=== PATIENT | female | born 1940 | race Caucasian/White ===

== ENCOUNTER 2017-09-04 11:29 | Inpatient (IN) ==
[2017-09-04] MEDS ORDERED: 0.9 % Sodium Chloride 1,000 ML IVC ONE (11:45)
[2017-09-04] MEDS ORDERED: Pantoprazole 40 MG VIAL IVP ONE (11:45)
[2017-09-04] MEDS ORDERED: *HR* Morphine 2 MG/ML SYRINGE IVP ONE (11:50)
[2017-09-04 12:03] LABS: Basophils % 0.6 %; Eosinophils # 0.1 K/mcL (0.0-0.6); Eosinophils % 2.1 %; Hematocrit 36.6 % (35.3-44.9); Immature Granulocytes % 0.2 % (0-4); Lymphocytes # 0.9 K/mcL (0.6-4.6); Lymphocytes % 17.9 %; Mean Corpuscular HGB Conc 32.8 g/dL (31.6-35.5); Mean Corpuscular Hemoglobin 32.6 pg (28.0-33.3); Mean Corpuscular Volume 99.5 fL (83.0-100.0); Mean Platelet Volume 11.7 fL (9.4-12.4); Monocytes # 0.5 K/mcL (0.0-1.3); Monocytes % 9.8 %; Neutrophils # 3.6 K/mcL (1.6-8.9); Platelet Count 198 K/mcL (140-400); Red Blood Count 3.68 M/mcL (3.82-4.97); Red Cell Distribution Width 13.2 % (11.5-14.5); Segmented Neutrophils % 69.4 %
--- NOTE | 2017-09-04 12:09 | Emergency Department Note ---
Disposition Clinical Impression: Hypokalemia, Acute kidney injury GI bleed Qualifiers: GI bleed type/associated pathology: unspecified gastrointestinal hemorrhage type Qualified Code(s): K92.2 - Gastrointestinal hemorrhage, unspecified Disposition: Admitted As Inpatient Condition: Fair Time of Disposition: 15:08 GI Bleed HPI - General Chief complaint: ED GI Bleed Stated complaint: rectal bleeding Time Seen by Provider: 09/04/17 11:35 Source: patient, family Limitations: physical limitation Nursing Notes Reviewed: Yes Vital Signs Reviewed: Yes - History of Present Illness HPI Narrative: 76-year-old female presents to emergency department after concern for her returned goods receiving clerk Dr. Marquis was concerned that the patient had a GI bleed. Patient states that she has had black stools for the past week. She also states that she is noticing some redness as well. Patient denies any previous history of bleeds. Patient does report a history of having perforation of her bowel. Patient states that she is currently having some abdominal discomfort and feels a sensation of "pain when her guts are gushing". Patient is reporting bright red blood on toilet paper, but not in the toilet. Patient denies taking any nonsteroidal anti-inflammatory drugs. - Related Data Home Medications Medication Instructions Recorded Confirmed Hydrochlorothiazide [Microzide] 12.5 mg PO DAILY 09/04/17 09/04/17 Metoprolol [Lopressor] 50 mg PO BID 09/04/17 09/04/17 Previous Rx's Medication Instructions Recorded Ciprofloxacin HCl [Cipro] 500 mg PO Q12H #20 tablet 08/28/17 Ondansetron ODT [Zofran ODT] 4 mg SL Q6HR #24 tab.rapdis 08/28/17 metroNIDAZOLE [Flagyl] 250 mg PO TID #21 tablet 08/28/17 Allergies Allergy/AdvReac Type Severity Reaction Status Date / Time sulfamethoxazole Allergy Hives Verified 09/04/17 11:30 [From Bactrim] trimethoprim [From Bactrim] Allergy Hives Verified 09/04/17 11:30 All systems ED: reviewed and negative except as stated. Review of Systems: As Per HPI Constitutional: Denies: fever Cardiovascular: Denies: chest pain Respiratory: Denies: dyspnea Gastrointestinal: Reports: abdominal pain, melena, hematochezia. Denies: nausea , vomiting Genitourinary: Denies: urgency Hematological/Lymphatic: Reports: easy bleeding Past Medical History - Past Medical History Medical history: Reports: hypertension Psychiatric history: Reports: no psych history CIRCUIT COURT MAGISTRATE history: Reports: no CIRCUIT COURT MAGISTRATE history - Social History Smoking Status: Former smoker Smokeless Tobacco Status: No Alcohol use: Reports: none Drug use: Reports: none Physical Exam General: Well Appearing, in no acute distress Head: autraumatic, EOMI, no conjuncitval pallor, no scleral icterus, Mouth: oral mucous membranes moist Neck: neck soft, trachea midline Chest:: Equal chest wall rise Lungs: Normal lungs sounds bilaterally, no wheezes, no respiratory distress Heart: normal heart sounds, normal rate and rhythm, Abdomen: soft, mild tenderness to palpation of the left lower quadrant, no rigidity, no guarding, no rebdound tenderness GI: No hemorrhoids or evidence of any blood rectum. No gross bloody stools or melenic stools or internal hemorrhoids palpated Lower Extremities: no pedal edema, calves non-tender Integumentary: Skin warm, dry, and intact Neuro: Alert Psych: normal affect, normal mood - General Limitations: physical limitation General appearance: alert, in no apparent distress Course Vital Signs Temperature 98.2 F 09/04/17 11:31 Pulse Rate 90 09/04/17 11:31 Respiratory Rate 15 09/04/17 11:31 Blood Pressure 155/85 09/04/17 11:31 O2 Sat by Pulse Oximetry 95 09/04/17 11:31 Temperature 98.2 F 09/04/17 11:31 Pulse Rate 91 09/04/17 15:41 Respiratory Rate 18 09/04/17 15:41 Blood Pressure 176/88 09/04/17 15:41 O2 Sat by Pulse Oximetry 98 09/04/17 15:41 Oxygen Delivery Oxygen Delivery Room Air GI Bleed - MDM Narrative Medical decision making narrative: 76-year-old female presents to the emergency department with concern from her returned goods receiving clerk for GI hemorrhage. Patient's been reporting melenic and bloody stools over the last week. Patient does have a history of bowel perforation. We will obtain a CT scan of the abdomen and pelvis which does not reveal any acute abnormality. Patient is mildly hypokalemic with a potassium of 2.9 here in the emergency department. We will replace this with 40 mg of potassium. Basic metabolic profile reveals elevated creatinine of 2.27. Hemoglobin here is normal, but there is concern that the patient could be hemoconcentrated which is evident in her acute kidney injury. Fecal Hemoccult was negative on this patient after obtaining a decent stool sample. There was also no gross melanotic stools or hemorrhoid on GI exam. A urinalysis has been ordered, but has not been obtained. I spoke with the hospitalist regarding admission of this patient as her history of present illness is very concerning to me and the fact that her returned goods receiving clerk sent her here is concerning as well. Even though I cannot find evidence of a GI bleed at this time, I do recommend further evaluation within the hospital setting. I spoke with the patient and family regarding admission and they agreed with the plan. I spoke with Dr. Topete, the hospitalist and he agrees to admit her as well. Patient was hemodynamically stable at time of admission to the hospital and not in any acute distress. Chest X-Ray 09/04/17 11:45 IMPRESSION: Mild elevation of the left hemidiaphragm. Patchy lingular airspace opacity may reflect atelectasis. D/ / 09/04/2017 12:28:13 Rosa Franklin MD / [facility] Interpreting Provider: Rosa Franklin MD Abdomen/Pelvis CT 09/04/17 13:41 IMPRESSION: No acute abnormality. D/ / Magno Holbrook MD / Magno Holbrook MD Interpreting Provider: Magno Holbrook MD Vital Signs Temperature 98.2 F 09/04/17 11:31 Pulse Rate 90 09/04/17 11:31 Respiratory Rate 15 09/04/17 11:31 Blood Pressure 155/85 09/04/17 11:31 O2 Sat by Pulse Oximetry 95 09/04/17 11:31 Temperature 98.2 F 09/04/17 11:31 Pulse Rate 91 09/04/17 15:41 Respiratory Rate 18 09/04/17 15:41 Blood Pressure 176/88 09/04/17 15:41 O2 Sat by Pulse Oximetry 98 09/04/17 15:41 Oxygen Delivery Oxygen Delivery Room Air - Lab Data Lab results reviewed: Yes I reviewed the patient's lab results. Result diagrams: 09/04/17 11:56 09/04/17 11:56 Lab Results 09/04/17 09/04/17 09/04/17 Range/Units 11:56 11:56 11:56 WBC 5.2 (4.3-11.1) K/mcL RBC 3.68 L (3.82-4.97) M/mcL Hgb 12.0 (11.5-15.4) g/dL Hct 36.6 (35.3-44.9) % MCV 99.5 (83.0-100.0) fL MCH 32.6 (28.0-33.3) pg MCHC 32.8 (31.6-35.5) g/dL RDW 13.2 (11.5-14.5) % Plt Count 198 (140-400) K/mcL MPV 11.7 (9.4-12.4) fL Immature Gran % 0.2 (0-4) % Seg Neutrophils % 69.4 % Lymphocytes % 17.9 % Monocytes % 9.8 % Eosinophils % 2.1 % Basophils % 0.6 % Neutrophils # 3.6 (1.6-8.9) K/mcL Lymphocytes # 0.9 (0.6-4.6) K/mcL Monocytes # 0.5 (0.0-1.3) K/mcL Eosinophils # 0.1 (0.0-0.6) K/mcL Basophils # 0.0 (0.0-0.2) K/mcL PT 12.5 H (9.4-12.1) Seconds INR 1.2 APTT 29.1 (26.0-36.0) Seconds Sodium 142 (136-145) mEq/L Potassium 2.9 L (3.5-4.5) mEq/L Chloride 105 (98-109) mEq/L Carbon Dioxide 28 (19-29) mEq/L BUN 19 (7-20) mg/dL Creatinine 2.27 H (0.57-1.11) mg/dL Est GFR ( Amer) 26 L (> 60) Est GFR (Non-Af Amer) 21 L (> 60) BUN/Creatinine Ratio 8 (6-26) Glucose 115 H (70-99) mg/dL Calculated Osmolality 297 (280-300) Lactic Acid (0.5-2.2) mmol/L Calcium 9.0 (8.6-10.8) mg/dL Magnesium 1.6 (1.6-2.6) mg/dL Total Bilirubin 0.5 (0.2-1.2) mg/dL AST 21 (5-34) Units/L ALT 22 (0-55) Units/L Alkaline Phosphatase 96 (38-126) Units/L Troponin I (0-0.03) ng/mL Serum Total Protein 8.1 (6.0-8.3) g/dL Albumin 3.5 (3.5-5.0) g/dL Globulin 4.6 H (2.4-3.5) g/dL Albumin/Globulin Ratio 0.8 L (1.1-2.2) Lipase 23 (8-78) Units/L Stool Occult Blood (Negative) Blood Type Antibody Screen Antibody Identification 09/04/17 09/04/17 09/04/17 Range/Units 11:56 11:56 11:56 WBC (4.3-11.1) K/mcL RBC (3.82-4.97) M/mcL Hgb (11.5-15.4) g/dL Hct (35.3-44.9) % MCV (83.0-100.0) fL MCH (28.0-33.3) pg MCHC (31.6-35.5) g/dL RDW (11.5-14.5) % Plt Count (140-400) K/mcL MPV (9.4-12.4) fL Immature Gran % (0-4) % Seg Neutrophils % % Lymphocytes % % Monocytes % % Eosinophils % % Basophils % % Neutrophils # (1.6-8.9) K/mcL Lymphocytes # (0.6-4.6) K/mcL Monocytes # (0.0-1.3) K/mcL Eosinophils # (0.0-0.6) K/mcL Basophils # (0.0-0.2) K/mcL PT (9.4-12.1) Seconds INR APTT (26.0-36.0) Seconds Sodium (136-145) mEq/L Potassium (3.5-4.5) mEq/L Chloride (98-109) mEq/L Carbon Dioxide (19-29) mEq/L BUN (7-20) mg/dL Creatinine (0.57-1.11) mg/dL Est GFR ( Amer) (> 60) Est GFR (Non-Af Amer) (> 60) BUN/Creatinine Ratio (6-26) Glucose (70-99) mg/dL Calculated Osmolality (280-300) Lactic Acid 1.3 (0.5-2.2) mmol/L Calcium (8.6-10.8) mg/dL Magnesium (1.6-2.6) mg/dL Total Bilirubin (0.2-1.2) mg/dL AST (5-34) Units/L ALT (0-55) Units/L Alkaline Phosphatase (38-126) Units/L Troponin I 0.01 (0-0.03) ng/mL Serum Total Protein (6.0-8.3) g/dL Albumin (3.5-5.0) g/dL Globulin (2.4-3.5) g/dL Albumin/Globulin Ratio (1.1-2.2) Lipase (8-78) Units/L Stool Occult Blood (Negative) Blood Type O NEGATIVE Antibody Screen POSITIVE Antibody Identification Anti-D 09/04/17 Range/Units 12:07 WBC (4.3-11.1) K/mcL RBC (3.82-4.97) M/mcL Hgb (11.5-15.4) g/dL Hct (35.3-44.9) % MCV (83.0-100.0) fL MCH (28.0-33.3) pg MCHC (31.6-35.5) g/dL RDW (11.5-14.5) % Plt Count (140-400) K/mcL MPV (9.4-12.4) fL Immature Gran % (0-4) % Seg Neutrophils % % Lymphocytes % % Monocytes % % Eosinophils % % Basophils % % Neutrophils # (1.6-8.9) K/mcL Lymphocytes # (0.6-4.6) K/mcL Monocytes # (0.0-1.3) K/mcL Eosinophils # (0.0-0.6) K/mcL Basophils # (0.0-0.2) K/mcL PT (9.4-12.1) Seconds INR APTT (26.0-36.0) Seconds Sodium (136-145) mEq/L Potassium (3.5-4.5) mEq/L Chloride (98-109) mEq/L Carbon Dioxide (19-29) mEq/L BUN (7-20) mg/dL Creatinine (0.57-1.11) mg/dL Est GFR ( Amer) (> 60) Est GFR (Non-Af Amer) (> 60) BUN/Creatinine Ratio (6-26) Glucose (70-99) mg/dL Calculated Osmolality (280-300) Lactic Acid (0.5-2.2) mmol/L Calcium (8.6-10.8) mg/dL Magnesium (1.6-2.6) mg/dL Total Bilirubin (0.2-1.2) mg/dL AST (5-34) Units/L ALT (0-55) Units/L Alkaline Phosphatase (38-126) Units/L Troponin I (0-0.03) ng/mL Serum Total Protein (6.0-8.3) g/dL Albumin (3.5-5.0) g/dL Globulin (2.4-3.5) g/dL Albumin/Globulin Ratio (1.1-2.2) Lipase (8-78) Units/L Stool Occult Blood Negative (Negative) Blood Type Antibody Screen Antibody Identification - EKG Data EKG attestation: Yes I reviewed and interpreted this EKG. EKG results narrative: 11:54 Ventricular rate 82 bpm, normal IL interval, QRS duration 77 ms, QT 381 ms, QTC 420 ms, Normal axis. Sinus rhythm with a ventricular rate of 82 bpm. There are new T-wave inversions in lead 3 and mild 0.[address] depressions in leads V3, V4, V5. This is new from her previous EKG performed on May 21, 2012. Attestation Statement - Attestation Attestation: I, Aneudy Ramirez DO, examined this patient [id number] and my medical decision-making was reviewed with Dr. Matias Keene, Resident Physician. I agree with the documented findings, disposition and treatment plan as described except to the extent set forth below. Please see my progress notes for details. 76-year-old female presents emergency room with complaint of rectal bleeding as well as dark-colored malonic stool. She is sent from her operative physician Dr. Arthur. She has had a previous bowel perforation or intimal tear in the past. Patient denies any abdominal pain, nausea vomiting diarrhea, chest pain shortness of breath headache or vision change. Denies any weakness ataxia and inability to ambulate or take care of her accident of daily living. Vital signs on presentation are stable. Family is with her at the bedside confirms all the information provided from the patient. The lungs are clear his regular abdomen is soft. Rectal examination does not show any gross blood, hemorrhoid, rectal fissure or tear. Hemoccult testing sent. Screening laboratory workup including type and screen ordered. CT the abdomen also ordered at this time as well as chest x-ray and EKG. Disposition will be discussed with the referring physician as well as possibly hospitals for admission. See detailed documentation of physical exam, medical intervention, medical decision-making, consultations and disposition and the resident physician's note
[2017-09-04 12:10] LABS: INR 1.2; Prothrombin Time 12.5 Seconds (9.4-12.1)
[2017-09-04 12:13] LABS: Activated Partial Thrombo Time 29.1 Seconds (26.0-36.0)
[2017-09-04 12:20] LABS: Albumin 3.5 g/dL (3.5-5.0); Albumin/Globulin Ratio 0.8 (1.1-2.2); Bilirubin,Total 0.5 mg/dL (0.2-1.2); Globulin 4.6 g/dL (2.4-3.5); Magnesium 1.6 mg/dL (1.6-2.6); Potassium 2.9 mEq/L (3.5-4.5); Total Protein 8.1 g/dL (6.0-8.3)
[2017-09-04 15:47] LABS: Bilirubin,Urine Negative (Negative); Blood,Urine Small (Negative); Color,Urine Dark Yellow (Yellow); Glucose,Urine (UA) Normal (Normal); Ketones,Urine Negative (Negative); Leukocyte Esterase,Urine Large (Negative); Nitrite,Urine Negative (Negative); Protein,Urine 30 mg/dL (Neg-Trace); Specific Gravity,Urine 1.013 (1.010-1.025); Urobilinogen,Urine Normal (Normal)
[2017-09-04 15:50] LABS: Hyaline Casts,Urine None Seen per lpf (None-Few); Squamous Epithelial Cell,Urine Many per lpf (None-Few); WBC,Urine TNTC per hpf (0-3)
[2017-09-04 15:52] LABS: Clarity,Urine Hazy (Clear)
[2017-09-04 16:03] LABS: Bacteria,Urine Few per hpf (None-Few); Yeast,Urine Moderate per hpf (None Seen)
[2017-09-04] MEDS ORDERED: Ondansetron 4 MG/2 ML VIAL IVP PRN (17:31)
[2017-09-04] MEDS ORDERED: Naloxone 0.4 MG/ML INJ IVP PRN (17:31)
[2017-09-04] MEDS ORDERED: Acetaminophen 325 MG TABLET PO PRN (17:31)
--- NOTE | 2017-09-04 17:52 | Internal Med History&Physical ---
<Carmen Bocanegra - Last Filed: 09/04/17 18:34> Date of Encounter: 09/04/17 Time of Encounter: 17:49 Assessment and Plan (1) GI bleed Current visit: Yes Status: Acute 1 patient has sun onset of malonic stools as well as blood clots and bright red blood on tissue paper this a.m. she did undergo a colonoscopy on 08/28/2017 was diagnosed with diverticular disease that time. She is not anticoagulated no history of GI bleed in past. She did have a intermittent approximate 5 years ago where she had a perforated bowel from colonoscopy, but no issues since that time. Hemoglobin is stable at 12 we will monitor H&H every 6 hours type and screen 2 patient initiated on Protonix 3 we did consult surgery for colonoscopy-I did speak with Dr. Amado who will patient on consult Qualifiers: GI bleed type/associated pathology: unspecified gastrointestinal hemorrhage type Qualified Code(s): K92.2 - Gastrointestinal hemorrhage, unspecified (2) HTN (hypertension) Current visit: Yes Status: Chronic Presently controlled we will continue with metoprolol with parameters Qualifiers: Hypertension type: essential hypertension Qualified Code(s): I10 - Essential (primary) hypertension (3) Diverticular disease Current visit: No Status: Acute 1 patient had been experiencing diarrhea and rectal bleeding she was seen on 08/28/2017 at [facility] and underwent a colonoscopy. She was diagnosed with diverticulosis at that time and was given Cipro and Flagyl and discharged home. Patient complaining of colonic stools this time CT of abdomen was unremarkable. Occult stool was negative. We will continue with Cipro and Flagyl surgery has been consult and for colonoscopy-I did speak with Dr. Amado who will see patient on consult Qualifiers: Diverticulosis site: unspecified location Diverticulosis bleeding: diverticulosis with bleeding Qualified Code(s): K57.91 - Diverticulosis of intestine, part unspecified, without perforation or abscess with bleeding (4) Acute kidney injury Current visit: Yes Status: Acute Patient's creatinine was 2.27, on the third this month it was 1.71. Patient says that she has had poor oral intake. We will give IV fluids and monitor creatinine 2 we will avoid nephrotoxins 3 monitor electrolytes replace as needed (5) DVT prophylaxis Current visit: Yes Status: Acute SCDs Internal Medicine - H&P: HPI Chief complaint: Malonic stools Admitted From: Emergency Dept Plans for Post Hospital Care: Home History of present illness: Ms. Mancia is a 76 year old female past medical history of hypertension hyperlipidemia. The patient underwent a colonoscopy on 08/28/[address] Guzman at [facility]. She had been experiencing diarrhea and rectal bleeding. She was diagnosed with diverticulosis and was discharged home on Cipro and Flagyl. Today she did experience episodes of dark tarry stool mixed with blood clots and bright red blood on toilet paper. She denies any abdominal pain fevers chills nausea or vomiting. She states that she has not been eating solid food and has been eating Jell-O's and soups. She had a follow -up appointment with Dr. Salinas who advised patient to go to the emergency room for evaluation. [facility] records CT of abdomen with no acute abnormality. Occult stool was negative hemoglobin at 12 she does have HUMZA with creatinine at 2.27. She has been admitted for further workup and evaluation. Presently the patient denies any chest pain or abdominal pain she does not appear to be actively bleeding at this time she is hemogram with a stable. I did review this case with Dr. Topete who agrees to plan Past Med Surg Social Fam HX - Past Medical History Medical history: hypertension Psychiatric history: no psych history - Past Surgical History Surgical History: hysterectomy - Social History Smoking Status: Former smoker Smokeless Tobacco Status: No Alcohol use: none Drug use: none - Family History Mother Age at : 60 Cause of : DM Hx Family Cardiac Disorders: Yes Hx Family Respiratory Disorders: No Hx Family Cancer: No Hx Family GI Disorders: No Hx Family Genitourinary Disorders: No Hx Family Endocrine Disorder: No Hx Family Musculoskeletal Disorders: No Hx Family Neuromuscular Disorders: Yes Hx Family Neurologic Disorders: No Hx Family HEENT Disorders: No Hx Family Autoimmune Disorders: No Hx Family Reproductive Disorders: No Hx Family Psychosocial Disorders: No Hx Family Medical Disorders: No Internal Medicine - H&P: Meds Ciprofloxacin HCl [Cipro] 500 mg PO Q12H #20 tablet 08/28/17 [Rx] Ondansetron ODT [Zofran ODT] 4 mg SL Q6HR #24 tab.rapdis 08/28/17 [Rx] metroNIDAZOLE [Flagyl] 250 mg PO TID #21 tablet 08/28/17 [Rx] Hydrochlorothiazide [Microzide] 12.5 mg PO DAILY 09/04/17 [History] Metoprolol [Lopressor] 50 mg PO BID 09/04/17 [History] 3 Allergy/AdvReac Type Severity Reaction Status Date / Time sulfamethoxazole Allergy Hives Verified 09/04/17 11:30 [From Bactrim] trimethoprim [From Bactrim] Allergy Hives Verified 09/04/17 11:30 All Systems PM: A 10-system review of systems was performed and is negative for pertinent findings except as documented above in the HPI. - Constitutional Constitutional: no chills, no fever(s), no night sweats - EENT Eyes: no change in vision, no discharge, no pain, no photophobia Nose, mouth and throat: no dysphagia, no nasal discharge, no neck pain, no sore throat - Cardiovascular Cardiovascular ROS IM: no chest pain, no diaphoresis, no dyspnea, no lightheadedness, no palpitations, no syncope - Respiratory Respiratory: no cough, no dyspnea, no wheezing, no excessive phlegm production - Gastrointestinal Gastrointestinal: diarrhea, melena, nausea - Genitourinary Genitourinary: no change in urinary stream, no dysuria, no flank pain, no hematuria - Musculoskeletal Musculoskeletal ROS IM: no numbness, no tingling - Integumentary Integumentary IM: no rash, no unusual bruising - Neurological Neurological ROS: no confusion, no convulsions, no focal weakness, no numbness, no tingling, no tremor(s) - Hematologic/Lymphatic Hematologic/Lymphatic: no easy bruising - Constitutional Vitals: Temp Pulse Resp BP Pulse Ox 97.8 F 86 17 123/63 97 09/04/17 17:42 09/04/17 17:42 09/04/17 17:42 09/04/17 17:42 09/04/17 17:42 General appearance: Present: A&O X 3, answers questions appropriately - Head Head exam: Present: atraumatic, normocephalic - Eye Eye exam: Present: PERRL, conjuntiva pink, sclera anicteric Pupils: Present: PERRL - Neck Neck exam general surgery: Present: supple, trachea midline. Absent: lymphadenopathy - Respiratory Respiratory exam: Present: CTAB. Absent: accessory muscle use, rales, rhonchi, wheezes - Cardiovascular Cardiovascular exam: Present: RRR, +S1, +S2. Absent: diastolic murmur, gallop, rubs, systolic murmur - GI/Abdominal GI/Abdominal exam: Present: normal bowel sounds, soft, no peritoneal signs. Absent: distended, tenderness - Extremities Exam Extremities exam: Present: warm, radial pulses palpable and symmetrical. Absent : calf tenderness, cyanotic, pedal edema - Neurological Exam Neurological exam: Present: CN II-XII intact, oriented X3, no focal deficits. Absent: pronater drift, facial droop, speech deficit - Skin Skin exam: Present: dry, intact Internal Med - H&P Results - Labs CBC & Chem 7: 09/04/17 11:56 09/04/17 11:56 Labs: Urine 09/04/17 Range/Units 15:39 Urine Color Dark Yellow (Yellow) Urine Clarity Hazy A (Clear) Urine pH 6.0 (5.0-8.0) pH Units Ur Specific [place] 1.013 (1.010-1.025) Urine Protein 30 H (Neg-Trace) mg/dL Urine Glucose (UA) Normal (Normal) mg/dL - Diagnostic Studies Other Images Additional comments: Chest X-Ray 09/04/17 11:45 IMPRESSION: Mild elevation of the left hemidiaphragm. Patchy lingular airspace opacity may reflect atelectasis. D/ / 09/04/2017 12:28:13 Rosa Franklin MD / [facility] Interpreting Provider: Rosa Franklin MD Abdomen/Pelvis CT 09/04/17 13:41 IMPRESSION: No acute abnormality. D/ / Magno Holbrook MD / Magno Holbrook MD Interpreting Provider: Magno Holbrook MD <Elias Topete P - Last Filed: 09/04/17 18:41> Date of Encounter: 09/04/17 Internal Medicine - H&P: HPI History of present illness: Ms. Mancia is a 76 year old female All Systems PM: A 10-system review of systems was performed and is negative for pertinent findings except as documented above in the HPI. - Constitutional Vitals: Temp Pulse Resp BP Pulse Ox 97.8 F 86 17 123/63 97 09/04/17 17:42 09/04/17 17:42 09/04/17 17:42 09/04/17 17:42 09/04/17 17:42 Internal Med - H&P Results - Labs CBC & Chem 7: 09/04/17 11:56 09/04/17 11:56 - Attending Attestation I examined this patient and my medical decision-making was reviewed with the Resident Physician/TERRITORY SALES MANAGER. I agree with the documented findings, disposition and treatment plan as described except to the extent set forth below.
[2017-09-04] MEDS: Pantoprazole 40 MG VIAL IVP SCH (18:09)
[2017-09-04] MEDS: MetroNIDAZOLE 500 MG/100 ML 500 MG/100 ML BAG IVPB SCH (18:09)
[2017-09-04] MEDS: 0.9 % Sodium Chloride 1,000 ML IVC SCH (18:10)
[2017-09-04 18:52] LABS: Hematocrit 32.3 % (35.3-44.9); Hemoglobin 10.4 g/dL (11.5-15.4)
--- NOTE | 2017-09-04 18:57 | Electrocardiograph Report ---
[place] [id number] Test Date: 2017-09-04 Pat Name: Delicia Mancia Department: 102 Room: 2A32 Gender: F Reel Assembler: Mariely : 1940 Requested By: Matias Keene Order Number: [id number] Reading MD: Yanick Stuart MD Measurements Intervals [place] Rate: 82 P: NC: 0 QRS: 19 QRSD: 77 T: 40 QT: 381 QTc: 420 Interpretive Statements SINUS RHYTHM Electronically Signed On 09-04-2017 18:56:10 EST by Yanick Stuart MD
[2017-09-04] MEDS ORDERED: metroNIDAZOLE 500 MG TABLET PO SCH (21:00)
[2017-09-04 23:33] LABS: Hematocrit 28.7 % (35.3-44.9); Hemoglobin 9.3 g/dL (11.5-15.4)
[2017-09-05] MEDS: MetroNIDAZOLE 500 MG/100 ML 500 MG/100 ML BAG IVPB SCH ×3 (02:57→17:19)
[2017-09-05] MEDS: Pantoprazole 40 MG VIAL IVP SCH ×2 (05:09→17:19)
[2017-09-05 07:00] LABS: Calcium 7.5 mg/dL (8.6-10.8); Potassium 3.4 mEq/L (3.5-4.5)
[2017-09-05] MEDS: 0.9 % Sodium Chloride 1,000 ML IVC SCH ×2 (09:33→23:22)
[2017-09-05] MEDS ORDERED: Potassium Chloride 40 MEQ, Lidocaine 1% 2 ML in D5% in Water 500 ML IVPB ONE (10:57)
--- NOTE | 2017-09-05 11:00 | Internal Med Progress Note ---
Date of Encounter: 09/05/17 Time of Encounter: 10:58 - Assessment and plan (1) Sigmoid diverticulitis Current Visit: Yes Status: Acute (2) Hypokalemia Current Visit: Yes Status: Acute (3) GI bleed Current Visit: Yes Status: Acute Qualifiers: GI bleed type/associated pathology: unspecified gastrointestinal hemorrhage type Qualified Code(s): K92.2 - Gastrointestinal hemorrhage, unspecified (4) Acute kidney injury Current Visit: Yes Status: Acute (5) HTN (hypertension) Current Visit: Yes Status: Chronic Qualifiers: Hypertension type: essential hypertension Qualified Code(s): I10 - Essential (primary) hypertension - Subjective Interval history: Admitted for GI bleed. Apparently on August 28 she was diagnosed with sigmoid diverticulitis. Colonoscopy was done in [facility]. She has returned as she continues to have melena and blood in her stool and even this morning she had bright red blood in her stool. She denies any abdominal pain nausea vomiting diarrhea otherwise. She has been restarted on IV Cipro and Flagyl. General surgery was consulted for possible colonoscopy. Check her CBC and CMP daily and also will check a magnesium. Her potassium is supplemented as it was low. Her creatinine is abnormal and IV fluids will be continued. Her abdominal examination is quite benign. - Constitutional Vitals: Temp Pulse Resp BP Pulse Ox 97.6 F 76 16 127/65 97 09/05/17 10:38 09/05/17 10:38 09/05/17 10:38 09/05/17 10:38 09/05/17 10:38 General appearance: Present: A&O X 3, answers questions appropriately - Head Head exam: Present: atraumatic, normocephalic - Eye Eye exam: Present: PERRL, conjuntiva pink, sclera anicteric Pupils: Present: PERRL - Neck Neck exam general surgery: Present: supple, trachea midline. Absent: lymphadenopathy - Respiratory Respiratory exam: Present: CTAB. Absent: accessory muscle use, rales, rhonchi, wheezes - Cardiovascular Cardiovascular exam: Present: RRR, +S1, +S2. Absent: diastolic murmur, gallop, rubs, systolic murmur - GI/Abdominal GI/Abdominal exam: Present: normal bowel sounds, soft, no peritoneal signs. Absent: distended, tenderness - Extremities Exam Extremities exam: Present: warm, radial pulses palpable and symmetrical. Absent : calf tenderness, cyanotic, pedal edema - Neurological Exam Neurological exam: Present: CN II-XII intact, oriented X3, no focal deficits. Absent: pronater drift, facial droop, speech deficit - Skin Skin exam: Present: dry, intact Internal Medicine: Result - Labs CBC & Chem 7: 09/04/17 23:24 09/05/17 06:30 Labs: Short CBC 09/04/17 09/04/17 Range/Units 17:57 23:24 Hgb 10.4 L D 9.3 L (11.5-15.4) g/dL Hct 32.3 L 28.7 L (35.3-44.9) % BMP 09/05/17 06:30 Sodium 144 Potassium 3.4 L Chloride 113 H Carbon Dioxide 22 BUN 16 Creatinine 1.83 H Glucose 128 H Calcium 7.5 L D - ABG Interpretation ABG results: PT/INR, D-dimer PT 12.5 Seconds (9.4-12.1) H 09/04/17 11:56 - VTE Documentation of Mechanical Device: Intermittent pneumatic compression device Consult Discharge Plan - Plan Referrals: Taylor Harding CNP [Primary Care Provider] - Alan Feldman MD [Family Provider] -
--- NOTE | 2017-09-05 13:51 | General Surgery Consult Note ---
Date of Encounter: 09/05/17 Time of Encounter: 13:51 Assessment and Plan (1) Dark stools Current Visit: Yes Status: Acute I explained to the patient and family members that I think it would be reasonable to consider both an EGD and colonoscopy given her above-mentioned symptoms. Discussed with the patient and family and we will start the bowel prep today for possible or tentative EGD and colonoscopy tomorrow. History of Present Illness Consult date: 09/05/17 Reason for consult: other (Dark stools, diarrhea) Requesting physician: Elias Topete History of present illness: The patient is a 76-year-old female with a past medical history significant for anxiety, hypertension, arthritis, chronic back pain who states that she been having persistent black colored stool about one month. She states she is also been having diarrhea for the same amount of time. She states that she has had a bowel movement 4-5 times per day may have been black in color. She is also admitted to some crampy abdominal pain she was seen by her primary doctor who ordered a CT scan of the abdomen and pelvis. The only abnormality demonstrated by CT scan was diverticulosis. Because of the patient's continued dark-colored stool she was admitted to the hospital and I have been asked to evaluate the patient for possible endoscopy. She has never had a colonoscopy or endoscopy procedure. She admits that her son had a history of colon cancer. Of note; the patient does admit to some occasional heartburn symptoms but has never been prescribed any medications for heartburn/reflux. Past Med Surg Social Fam HX - Past Medical History Medical history: hypertension Psychiatric history: no psych history - Past Surgical History Surgical History: hysterectomy - Social History Smoking Status: Former smoker Smokeless Tobacco Status: No Alcohol use: none Drug use: none - Family History Mother Age at : 60 Cause of : DM Hx Family Cardiac Disorders: Yes Hx Family Respiratory Disorders: No Hx Family Cancer: No Hx Family GI Disorders: No Hx Family Genitourinary Disorders: No Hx Family Endocrine Disorder: No Hx Family Musculoskeletal Disorders: No Hx Family Neuromuscular Disorders: Yes Hx Family Neurologic Disorders: No Hx Family HEENT Disorders: No Hx Family Autoimmune Disorders: No Hx Family Reproductive Disorders: No Hx Family Psychosocial Disorders: No Hx Family Medical Disorders: No Medications and Allergies Ciprofloxacin HCl [Cipro] 500 mg PO Q12H #20 tablet 08/28/17 [Rx] Ondansetron ODT [Zofran ODT] 4 mg SL Q6HR #24 tab.rapdis 08/28/17 [Rx] metroNIDAZOLE [Flagyl] 250 mg PO TID #21 tablet 08/28/17 [Rx] Hydrochlorothiazide [Microzide] 12.5 mg PO DAILY 09/04/17 [History] Metoprolol [Lopressor] 50 mg PO BID 09/04/17 [History] 3 Allergy/AdvReac Type Severity Reaction Status Date / Time sulfamethoxazole Allergy Hives Verified 09/04/17 11:30 [From Bactrim] trimethoprim [From Bactrim] Allergy Hives Verified 09/04/17 11:30 Review of Systems All systems PM: reviewed and no additional remarkable complaints except as stated All systems PM: A 10-system review of systems was performed and is negative for pertinent findings except as documented above in the HPI. General Surgery Exam Initial Vital Signs Temp Pulse Resp BP Pulse Ox 98.2 F 90 15 155/85 95 09/04/17 11:31 09/04/17 11:31 09/04/17 11:31 09/04/17 11:31 09/04/17 11:31 - General physical appearance well nourished, no distress - Eyes PERRL, normal ocular movement - Neck no masses, trachea midline, no lymphadectomy - Respiratory normal expansion, normal respiratory effort, clear to auscultation - Cardiovascular Cardiovascular exam: Present: RRR, no murmurs/rubs/gallops - Abdomen Abdomen general surgery: Present: bowel sounds present, soft, non tender - Integumentary Integumentary general surgery: Present: warm and dry - Neurologic Present: CN 2-12 grossly intact - Musculoskeletal Present: other (no clubbing, cyanosis, or edema.) - Psychiatric Psychiatric general surgery: Present: A&Ox3, appropriate, oriented to person, oriented to place, oriented to time Exam Initial Vital Signs Temp Pulse Resp BP Pulse Ox 98.2 F 90 15 155/85 95 09/04/17 11:31 09/04/17 11:31 09/04/17 11:31 09/04/17 11:31 09/04/17 11:31 Results - Labs 09/06/17 03:16 09/06/17 03:16 Abnormal lab results RBC 3.68 M/mcL (3.82-4.97) L 09/04/17 11:56 Hgb 9.3 g/dL (11.5-15.4) L 09/04/17 23:24 Hct 28.7 % (35.3-44.9) L 09/04/17 23:24 PT 12.5 Seconds (9.4-12.1) H 09/04/17 11:56 Potassium 3.4 mEq/L (3.5-4.5) L 09/05/17 06:30 Chloride 113 mEq/L (98-109) H 09/05/17 06:30 Creatinine 1.83 mg/dL (0.57-1.11) H 09/05/17 06:30 Est GFR ( Amer) 33 (> 60) L 09/05/17 06:30 Est GFR (Non-Af Amer) 27 (> 60) L 09/05/17 06:30 Glucose 128 mg/dL (70-99) H 09/05/17 06:30 Calculated Osmolality 301 (280-300) H 09/05/17 06:30 Calcium 7.5 mg/dL (8.6-10.8) L D 09/05/17 06:30 Globulin 4.6 g/dL (2.4-3.5) H 09/04/17 11:56 Albumin/Globulin Ratio 0.8 (1.1-2.2) L 09/04/17 11:56 Urine Clarity Hazy (Clear) A 09/04/17 15:39 Urine Protein 30 mg/dL (Neg-Trace) H 09/04/17 15:39 Urine Blood Small (Negative) H 09/04/17 15:39 Ur Leukocyte Esterase Large (Negative) H 09/04/17 15:39 Urine Microscopic RBC 5-15 per hpf (0-3) H 09/04/17 15:39 Urine Microscopic WBC TNTC per hpf (0-3) H 09/04/17 15:39 Ur Squamous Epith Cells Many per lpf (None-Few) H 09/04/17 15:39 Urine Yeast Moderate per hpf (None Seen) H 09/04/17 15:39 Ur Culture Indicated? YES (NO) A 09/04/17 15:39 Diabetes panel 09/05/17 Range/Units 06:30 Sodium 144 (136-145) mEq/L Potassium 3.4 L (3.5-4.5) mEq/L Chloride 113 H (98-109) mEq/L Carbon Dioxide 22 (19-29) mEq/L BUN 16 (7-20) mg/dL Creatinine 1.83 H (0.57-1.11) mg/dL Glucose 128 H (70-99) mg/dL Calcium 7.5 L D (8.6-10.8) mg/dL Calcium panel 09/05/17 Range/Units 06:30 Calcium 7.5 L D (8.6-10.8) mg/dL Pituitary panel 09/05/17 Range/Units 06:30 Sodium 144 (136-145) mEq/L Potassium 3.4 L (3.5-4.5) mEq/L Chloride 113 H (98-109) mEq/L Carbon Dioxide 22 (19-29) mEq/L BUN 16 (7-20) mg/dL Creatinine 1.83 H (0.57-1.11) mg/dL Glucose 128 H (70-99) mg/dL Calcium 7.5 L D (8.6-10.8) mg/dL Adrenal panel 09/05/17 Range/Units 06:30 Sodium 144 (136-145) mEq/L Potassium 3.4 L (3.5-4.5) mEq/L Chloride 113 H (98-109) mEq/L Carbon Dioxide 22 (19-29) mEq/L BUN 16 (7-20) mg/dL Creatinine 1.83 H (0.57-1.11) mg/dL Glucose 128 H (70-99) mg/dL Calcium 7.5 L D (8.6-10.8) mg/dL All other labs normal. Consult Discharge Plan - Plan Referrals: Alan Feldman MD [Family Provider] - Taylor Harding CNP [Primary Care Provider] -
[2017-09-05] MEDS ORDERED: Polyethylene Glycol 3350 255 GM POWDER PO ONE (14:04)
[2017-09-06] MEDS: MetroNIDAZOLE 500 MG/100 ML 500 MG/100 ML BAG IVPB SCH ×2 (02:17→09:48)
[2017-09-06 04:18] LABS: Basophils % 0.9 %; Eosinophils # 0.2 K/mcL (0.0-0.6); Eosinophils % 4.7 %; Hematocrit 33.3 % (35.3-44.9); Hemoglobin 10.5 g/dL (11.5-15.4); Immature Granulocytes % 0.6 % (0-4); Lymphocytes # 1.1 K/mcL (0.6-4.6); Lymphocytes % 23.5 %; Mean Corpuscular HGB Conc 31.5 g/dL (31.6-35.5); Mean Corpuscular Hemoglobin 32.2 pg (28.0-33.3); Mean Corpuscular Volume 102.1 fL (83.0-100.0); Mean Platelet Volume 12.6 fL (9.4-12.4); Monocytes # 0.4 K/mcL (0.0-1.3); Monocytes % 7.5 %; Neutrophils # 2.9 K/mcL (1.6-8.9); Platelet Count 176 K/mcL (140-400); Red Blood Count 3.26 M/mcL (3.82-4.97); Red Cell Distribution Width 13.3 % (11.5-14.5); Segmented Neutrophils % 62.8 %
[2017-09-06 04:46] LABS: Albumin/Globulin Ratio 0.8 (1.1-2.2); Bilirubin,Total 0.5 mg/dL (0.2-1.2); Calcium 7.9 mg/dL (8.6-10.8); Globulin 3.6 g/dL (2.4-3.5)
[2017-09-06 04:50] LABS: Albumin 2.7 g/dL (3.5-5.0); Total Protein 6.3 g/dL (6.0-8.3)
[2017-09-06 04:51] LABS: Potassium 3.8 mEq/L (3.5-4.5)
[2017-09-06] MEDS: Pantoprazole 40 MG VIAL IVP SCH ×2 (05:47→17:37)
--- NOTE | 2017-09-06 10:05 | General Surgery Progress Note ---
Date of Encounter: 09/06/17 Time of Encounter: 10:04 - Assessment and Plan (1) Dark stools Current Visit: Yes Status: Acute We will proceed with the EGD and colonoscopy today. Discussed with the patient and family members and they agree with the above plan. Subjective Patient reports: no new complaints, other (The states that she has been having liquid dark bowel movements but no solid stool. No abdominal pain and no nausea or vomiting.) Objective Vital Signs - Last 8 Hours Temp Pulse Resp BP Pulse Ox 09/06/17 06:43 98.8 F 72 16 134/71 98 09/06/17 04:40 97.6 F 68 16 147/61 96 Intake and Output 09/05/17 09/06/17 09/06/17 23:59 07:59 15:59 Intake Total 1340 / 1340 300 / 300 Balance 1340 / 1340 300 / 300 Intake: IV Fluids 1100 / 1100 300 / 300 0.9 % Sodium Chloride 1,000 ML 1000 / 1000 @ 100 mls/hr IVC .Q10H JANI Rx#: [id number] Cipro Premix 400 MG/200 ML 400 200 / 200 mg In 200 ml @ 200 mls/hr IVPB Q24H JANI Rx#:[id number] Flagyl Premix 500 MG/100 ML 500 100 / 100 100 / 100 mg In 100 ml @ 100 mls/hr IVPB Q8H JANI Rx#:[id number] Oral 240 / 240 Other: Meal Dinner Stool Size Small Small Stool Consistency liquid liquid Stool Color Brown # Bowel Movements 1 1 # Bowel Movement Diapers 1 Weight 61.4 kg Patient Weight 09/06/17 23:59 Weight 61.4 kg - General physical appearance well nourished, no distress - Abdomen Abdomen: Present: soft, non tender - Labs 09/06/17 03:16 09/06/17 03:16 Diabetes panel 09/06/17 Range/Units 03:16 Sodium 138 (136-145) mEq/L Potassium 3.8 (3.5-4.5) mEq/L Chloride 110 H (98-109) mEq/L Carbon Dioxide 23 (19-29) mEq/L BUN 11 (7-20) mg/dL Creatinine 1.60 H (0.57-1.11) mg/dL Glucose 115 H (70-99) mg/dL Calcium 7.9 L (8.6-10.8) mg/dL AST 14 (5-34) Units/L ALT 10 (0-55) Units/L Alkaline Phosphatase 70 (38-126) Units/L Albumin 2.7 L D (3.5-5.0) g/dL Calcium panel 09/06/17 Range/Units 03:16 Calcium 7.9 L (8.6-10.8) mg/dL Albumin 2.7 L D (3.5-5.0) g/dL Pituitary panel 09/06/17 Range/Units 03:16 Sodium 138 (136-145) mEq/L Potassium 3.8 (3.5-4.5) mEq/L Chloride 110 H (98-109) mEq/L Carbon Dioxide 23 (19-29) mEq/L BUN 11 (7-20) mg/dL Creatinine 1.60 H (0.57-1.11) mg/dL Glucose 115 H (70-99) mg/dL Calcium 7.9 L (8.6-10.8) mg/dL Adrenal panel 09/06/17 Range/Units 03:16 Sodium 138 (136-145) mEq/L Potassium 3.8 (3.5-4.5) mEq/L Chloride 110 H (98-109) mEq/L Carbon Dioxide 23 (19-29) mEq/L BUN 11 (7-20) mg/dL Creatinine 1.60 H (0.57-1.11) mg/dL Glucose 115 H (70-99) mg/dL Calcium 7.9 L (8.6-10.8) mg/dL Total Bilirubin 0.5 (0.2-1.2) mg/dL AST 14 (5-34) Units/L ALT 10 (0-55) Units/L Alkaline Phosphatase 70 (38-126) Units/L Albumin 2.7 L D (3.5-5.0) g/dL - VTE Documentation of Mechanical Device: Intermittent pneumatic compression device Consult Discharge Plan - Plan Referrals: Alan Feldman MD [Family Provider] - Taylor Harding CNP [Primary Care Provider] -
--- NOTE | 2017-09-06 10:51 | Anesthesia Evaluation PreOp ---
Date of Encounter: 09/06/17 Time of Encounter: 11:19 - Past History Planned Operation: EGD/colon (GI bleed) Cardiac History: HTN Pulmonary History: Former smoker POT RELINER History: Denies Any Significant HX Other Medical History: Renal (ckd) Anesthesia History: No Prior Anesthetic Complications Alcohol Use: none Drug use: none Medications and Allergies Ciprofloxacin HCl [Cipro] 500 mg PO Q12H #20 tablet 08/28/17 [Rx] Ondansetron ODT [Zofran ODT] 4 mg SL Q6HR #24 tab.rapdis 08/28/17 [Rx] metroNIDAZOLE [Flagyl] 250 mg PO TID #21 tablet 08/28/17 [Rx] Hydrochlorothiazide [Microzide] 12.5 mg PO DAILY 09/04/17 [History] Metoprolol [Lopressor] 50 mg PO BID 09/04/17 [History] 3 Allergy/AdvReac Type Severity Reaction Status Date / Time sulfamethoxazole Allergy Hives Verified 09/04/17 11:30 [From Bactrim] trimethoprim [From Bactrim] Allergy Hives Verified 09/04/17 11:30 - Meds/Allergy Pre-op Review Medications Reviewed: Yes Allergies Reviewed: Yes Beta Blockers on Current Med List: Yes If Beta Blockers taken, Date/Time (Last Dose taken): 09-06-17 metoprolol 9:48 Anesthesia Results - Labs 09/06/17 03:16 09/06/17 03:16 - Imaging EKG: report reviewed, image reviewed (SR) Anesthesia Exam Last Vital Signs Temp 98.7 F 09/06/17 10:31 Pulse 61 09/06/17 10:31 Resp 17 09/06/17 10:31 BP 135/62 09/06/17 10:31 Pulse Ox 96 09/06/17 10:31 Weight: 61 kg - HEENT Pupil (Motor): Pupils equal, EOMI Teeth: Edentulous Oral Opening: Greater than 3 - POT RELINER LOC: Oriented POT RELINER Motor: Normal RUE, Normal LUE, Normal RLE, Normal LLE, Normal Face - Cardiac Rhythm: Regular - Pulmonary Breath Sounds: bilateral Clear Respiratory Effort: Symmetrical Anesthesia Assess/Plan ASA Score: 2 Modified Ingalls Scale for Level of Consciousness: Cooperative, oriented, and tranquil Anesthetic Plan: MAC Monitoring Plan: Standard Monitors Recovery Plan: PACU
[2017-09-06] MEDS ORDERED: Lidocaine -MPF 2% 2 ML VIAL ONE (10:59)
[2017-09-06] MEDS ORDERED: *HR* Propofol 200 MG/20 ML VIAL IVP ONE (10:59)
[2017-09-06] MEDS ORDERED: Propofol 500 MG/50 ML INFUS..BTL ONE (10:59)
--- NOTE | 2017-09-06 11:53 | Event Note ---
Date of Encounter: 09/06/17 Time of Encounter: 11:51 EGD performed-noted hiatal hernia. Granular mucosa of the antrum-biopsied. No evidence of bleeding. No gastric or duodenal ulcer. Colonoscopy performed-evidence of prior sigmoid/rectal surgery. No active bleeding. Small diverticulum. No masses or polyps. Biopsy obtained of the cecum (random biopsy). Ok to advance diet. Await path results. Will sign off-thank you.
--- NOTE | 2017-09-06 11:53 | Anesthesia Evaluation Post Op ---
Date of Encounter: 09/06/17 Time of Encounter: 11:53 - Vital Signs Vital Signs: BP 132/77 RR 16 O2 100% HR 68 - Lungs Lungs: Clear Ascult./Percussion - Airway Airway: Non-obstructed - Cardiovascular Regular Rate, Baseline Rhythm - Mental Status Mental Status: Alert & Oriented, Answers Appropriately - Pain Pain Scale: 2 - Nausea Vomiting Nausea Vomiting: Not Present - Hydration Hydration: NPO - Discharge PostOp Status: Transfer Patient to floor
[2017-09-06] MEDS ORDERED: Naloxone 0.4 MG/ML INJ IVP PRN (11:58)
[2017-09-06] MEDS ORDERED: Ondansetron 4 MG/2 ML VIAL IVP PRN (11:58)
[2017-09-06] MEDS ORDERED: Acetaminophen 325 MG TABLET PO PRN (11:58)
--- NOTE | 2017-09-06 16:44 | Internal Med Progress Note ---
Date of Encounter: 09/06/17 Time of Encounter: 16:43 - Assessment and plan (1) Sigmoid diverticulitis Current Visit: Yes Status: Acute (2) Hypokalemia Current Visit: Yes Status: Acute (3) GI bleed Current Visit: Yes Status: Acute Qualifiers: GI bleed type/associated pathology: unspecified gastrointestinal hemorrhage type Qualified Code(s): K92.2 - Gastrointestinal hemorrhage, unspecified (4) Acute kidney injury Current Visit: Yes Status: Acute (5) HTN (hypertension) Current Visit: Yes Status: Chronic Qualifiers: Hypertension type: essential hypertension Qualified Code(s): I10 - Essential (primary) hypertension - Subjective Interval history: Admitted for GI bleed. Apparently on August 28 she was diagnosed with sigmoid diverticulitis. Colonoscopy was done in [facility]. She has returned as she continues to have melena and blood in her stool and even this morning she had bright red blood in her stool. She denies any abdominal pain nausea vomiting diarrhea otherwise. She has been restarted on IV Cipro and Flagyl. General surgery was consulted for possible colonoscopy. Check her CBC and CMP daily and also will check a magnesium. Her potassium is supplemented as it was low. Her creatinine is abnormal and IV fluids will be continued. Her abdominal examination is quite benign. Hemoglobin is stable Hemoccult negative EGD and colonoscopy negative for bleed or inflammation. Random biopsy at rectum. Increase diet. Change antibiotic to oral. Possible discharge tomorrow if tolerates full diet.. - Constitutional Vitals: Temp Pulse Resp BP Pulse Ox 97.5 F L 67 17 144/72 96 09/06/17 15:28 09/06/17 15:28 09/06/17 15:28 09/06/17 15:28 09/06/17 15:28 General appearance: Present: A&O X 3, answers questions appropriately - Head Head exam: Present: atraumatic, normocephalic - Eye Eye exam: Present: PERRL, conjuntiva pink, sclera anicteric Pupils: Present: PERRL - Neck Neck exam general surgery: Present: supple, trachea midline. Absent: lymphadenopathy - Respiratory Respiratory exam: Present: CTAB. Absent: accessory muscle use, rales, rhonchi, wheezes - Cardiovascular Cardiovascular exam: Present: RRR, +S1, +S2. Absent: diastolic murmur, gallop, rubs, systolic murmur - GI/Abdominal GI/Abdominal exam: Present: normal bowel sounds, soft, no peritoneal signs. Absent: distended, tenderness - Extremities Exam Extremities exam: Present: warm, radial pulses palpable and symmetrical. Absent : calf tenderness, cyanotic, pedal edema - Neurological Exam Neurological exam: Present: CN II-XII intact, oriented X3, no focal deficits. Absent: pronater drift, facial droop, speech deficit - Skin Skin exam: Present: dry, intact Internal Medicine: Result - Labs CBC & Chem 7: 09/06/17 03:16 09/06/17 03:16 Labs: Short CBC 09/06/17 Range/Units 03:16 WBC 4.6 (4.3-11.1) K/mcL Hgb 10.5 L (11.5-15.4) g/dL Hct 33.3 L (35.3-44.9) % Plt Count 176 (140-400) K/mcL Neutrophils # 2.9 (1.6-8.9) K/mcL BMP 09/06/17 03:16 Sodium 138 Potassium 3.8 Chloride 110 H Carbon Dioxide 23 BUN 11 Creatinine 1.60 H Glucose 115 H Calcium 7.9 L Liver Function 09/06/17 Range/Units 03:16 Total Bilirubin 0.5 (0.2-1.2) mg/dL AST 14 (5-34) Units/L ALT 10 (0-55) Units/L Alkaline Phosphatase 70 (38-126) Units/L Albumin 2.7 L D (3.5-5.0) g/dL - ABG Interpretation ABG results: PT/INR, D-dimer PT 12.5 Seconds (9.4-12.1) H 09/04/17 11:56 - VTE Documentation of Mechanical Device: Intermittent pneumatic compression device Consult Discharge Plan - Plan Referrals: Alan Feldman MD [Family Provider] - Taylor Harding CNP [Primary Care Provider] -
[2017-09-06] MEDS ORDERED: MetroNIDAZOLE 500 MG/100 ML 500 MG/100 ML BAG IVPB SCH (18:00)
[2017-09-06] MEDS: metroNIDAZOLE 500 MG TABLET PO SCH (20:23)
[2017-09-07 03:31] LABS: Basophils % 0.7 %; Eosinophils # 0.2 K/mcL (0.0-0.6); Eosinophils % 4.1 %; Hematocrit 30.7 % (35.3-44.9); Hemoglobin 9.9 g/dL (11.5-15.4); Immature Granulocytes % 0.2 % (0-4); Lymphocytes # 0.9 K/mcL (0.6-4.6); Lymphocytes % 22.2 %; Mean Corpuscular HGB Conc 32.2 g/dL (31.6-35.5); Mean Corpuscular Hemoglobin 32.9 pg (28.0-33.3); Mean Platelet Volume 12.1 fL (9.4-12.4); Monocytes # 0.5 K/mcL (0.0-1.3); Monocytes % 11.1 %; Neutrophils # 2.6 K/mcL (1.6-8.9); Platelet Count 156 K/mcL (140-400); Red Blood Count 3.01 M/mcL (3.82-4.97); Red Cell Distribution Width 13.4 % (11.5-14.5); Segmented Neutrophils % 61.7 %
[2017-09-07 03:41] LABS: Alanine Aminotransferase 9 Units/L (0-55); Albumin 2.2 g/dL (3.5-5.0); Albumin/Globulin Ratio 0.7 (1.1-2.2); Alkaline Phosphatase 61 Units/L (38-126); Aspartate Amino Transferase 9 Units/L (5-34); BUN/Creatinine Ratio 8 (6-26); Blood Urea Nitrogen 14 mg/dL (7-20); Calcium 7.6 mg/dL (8.6-10.8); Carbon Dioxide 20 mEq/L (19-29); Chloride 114 mEq/L (98-109); Globulin 3.3 g/dL (2.4-3.5); Glucose 111 mg/dL (70-99); Magnesium 1.5 mg/dL (1.6-2.6); Osmolality,Calculated 293 (280-300); Potassium 3.7 mEq/L (3.5-4.5); Sodium 141 mEq/L (136-145); Total Protein 5.5 g/dL (6.0-8.3); eGFR For African Americans 34 (> 60); eGFR For Non-African Americans 28 (> 60)
[2017-09-07 03:42] LABS: Bilirubin,Total < 0.2 mg/dL (0.2-1.2)
[2017-09-07] MEDS: Pantoprazole 40 MG VIAL IVP SCH (07:38)
[2017-09-07] MEDS: metroNIDAZOLE 500 MG TABLET PO SCH ×3 (08:32→20:00)
[2017-09-07] MEDS: 0.9 % Sodium Chloride 1,000 ML IVC SCH ×2 (12:52→22:08)
--- NOTE | 2017-09-07 17:18 | Internal Med Progress Note ---
Date of Encounter: 09/07/17 Time of Encounter: 17:17 - Assessment and plan (1) Sigmoid diverticulitis Current Visit: Yes Status: Acute (2) Hypokalemia Current Visit: Yes Status: Acute (3) GI bleed Current Visit: Yes Status: Acute Qualifiers: GI bleed type/associated pathology: unspecified gastrointestinal hemorrhage type Qualified Code(s): K92.2 - Gastrointestinal hemorrhage, unspecified (4) Acute kidney injury Current Visit: Yes Status: Acute (5) HTN (hypertension) Current Visit: Yes Status: Chronic Qualifiers: Hypertension type: essential hypertension Qualified Code(s): I10 - Essential (primary) hypertension - Subjective Interval history: Admitted for GI bleed. Apparently on August 28 she was diagnosed with sigmoid diverticulitis. Colonoscopy was done in [facility]. She has returned as she continues to have melena and blood in her stool and even this morning she had bright red blood in her stool. She denies any abdominal pain nausea vomiting diarrhea otherwise. She has been restarted on IV Cipro and Flagyl. General surgery was consulted for possible colonoscopy. Check her CBC and CMP daily and also will check a magnesium. Her potassium is supplemented as it was low. Her creatinine is abnormal and IV fluids will be continued. Her abdominal examination is quite benign. Hemoglobin is stable Hemoccult negative EGD and colonoscopy negative for bleed or inflammation. Random biopsy at rectum. Results pending Increase diet. Change antibiotic to oral. Possible discharge tomorrow if tolerates full diet.. Creatinine elevated start IV fluid to see if it can come down to the baseline and also magnesium is low for which IV magnesium as given. Patient lost her IV yesterday and therefore our power to light was done today. - Constitutional Vitals: Temp Pulse Resp BP Pulse Ox 97.9 F 75 16 144/77 99 09/07/17 16:19 09/07/17 16:19 09/07/17 16:19 09/07/17 16:19 09/07/17 16:19 General appearance: Present: A&O X 3, answers questions appropriately Internal Medicine: Result - Labs CBC & Chem 7: 09/07/17 03:09 09/07/17 03:09 Labs: Short CBC 09/07/17 Range/Units 03:09 WBC 4.2 L (4.3-11.1) K/mcL Hgb 9.9 L (11.5-15.4) g/dL Hct 30.7 L (35.3-44.9) % Plt Count 156 (140-400) K/mcL Neutrophils # 2.6 (1.6-8.9) K/mcL BMP 09/07/17 03:09 Sodium 141 Potassium 3.7 Chloride 114 H Carbon Dioxide 20 BUN 14 Creatinine 1.76 H Glucose 111 H Calcium 7.6 L Liver Function 09/07/17 Range/Units 03:09 Total Bilirubin < 0.2 L (0.2-1.2) mg/dL AST 9 (5-34) Units/L ALT 9 (0-55) Units/L Alkaline Phosphatase 61 (38-126) Units/L Albumin 2.2 L (3.5-5.0) g/dL - ABG Interpretation ABG results: PT/INR, D-dimer PT 12.5 Seconds (9.4-12.1) H 09/04/17 11:56 - VTE Documentation of Mechanical Device: Intermittent pneumatic compression device Consult Discharge Plan - Plan Referrals: Alan Feldman MD [Family Provider] - Taylor Harding CNP [Primary Care Provider] -
[2017-09-08 04:09] LABS: Basophils % 0.7 %; Eosinophils # 0.2 K/mcL (0.0-0.6); Eosinophils % 4.5 %; Hematocrit 30.1 % (35.3-44.9); Hemoglobin 9.6 g/dL (11.5-15.4); Immature Granulocytes % 0.9 % (0-4); Lymphocytes # 1.2 K/mcL (0.6-4.6); Lymphocytes % 27.3 %; Mean Corpuscular HGB Conc 31.9 g/dL (31.6-35.5); Mean Corpuscular Hemoglobin 32.8 pg (28.0-33.3); Mean Corpuscular Volume 102.7 fL (83.0-100.0); Mean Platelet Volume 12.2 fL (9.4-12.4); Monocytes # 0.4 K/mcL (0.0-1.3); Monocytes % 9.8 %; Neutrophils # 2.5 K/mcL (1.6-8.9); Platelet Count 162 K/mcL (140-400); Red Blood Count 2.93 M/mcL (3.82-4.97); Red Cell Distribution Width 13.6 % (11.5-14.5); Segmented Neutrophils % 56.8 %
[2017-09-08 04:12] LABS: Alanine Aminotransferase 6 Units/L (0-55); Albumin 2.2 g/dL (3.5-5.0); Albumin/Globulin Ratio 0.6 (1.1-2.2); Alkaline Phosphatase 65 Units/L (38-126); Aspartate Amino Transferase 8 Units/L (5-34); BUN/Creatinine Ratio 10 (6-26); Bilirubin,Total < 0.2 mg/dL (0.2-1.2); Blood Urea Nitrogen 16 mg/dL (7-20); Calcium 7.3 mg/dL (8.6-10.8); Carbon Dioxide 21 mEq/L (19-29); Chloride 118 mEq/L (98-109); Globulin 3.4 g/dL (2.4-3.5); Glucose 120 mg/dL (70-99); Magnesium 1.8 mg/dL (1.6-2.6); Osmolality,Calculated 300 (280-300); Potassium 3.7 mEq/L (3.5-4.5); Sodium 144 mEq/L (136-145); Total Protein 5.6 g/dL (6.0-8.3); eGFR For African Americans 36 (> 60); eGFR For Non-African Americans 30 (> 60)
[2017-09-08 07:19] VITALS: BP 155/81
[2017-09-08] MEDS: metroNIDAZOLE 500 MG TABLET PO SCH (09:41)
--- NOTE | 2017-09-08 10:47 | Discharge Summary ---
Date of Encounter: 09/08/17 Time of Encounter: 10:45 - Discharge Diagnosis (1) Sigmoid diverticulitis Priority: Primary Status: Acute (2) Anemia Priority: Primary Status: Acute Qualifiers: Anemia type: due to chronic kidney disease Chronic kidney disease stage: stage 3 (moderate) Qualified Code(s): N18.3 - Chronic kidney disease, stage 3 (moderate); D63.1 - Anemia in chronic kidney disease; D63.1 - Anemia in chronic kidney disease (3) GI bleed Priority: Primary Status: Ruled-out Qualifiers: GI bleed type/associated pathology: unspecified gastrointestinal hemorrhage type Qualified Code(s): K92.2 - Gastrointestinal hemorrhage, unspecified (4) Acute kidney injury Priority: Primary Status: Resolved (5) CKD (chronic kidney disease) stage 3, GFR 30-59 ml/min Priority: Secondary Status: Chronic (6) HTN (hypertension) Priority: Secondary Status: Chronic Qualifiers: Hypertension type: essential hypertension Qualified Code(s): I10 - Essential (primary) hypertension - Discharge Medications Prescriptions: Ciprofloxacin HCl [Cipro] 250 mg PO BID #8 tab metroNIDAZOLE [Flagyl] 500 mg PO TID #12 tablet Omeprazole [PriLOSEC] 20 mg PO DAILY #30 cap Home Medications: Metoprolol [Lopressor] 50 mg PO BID 09/04/17 [History] Ciprofloxacin HCl [Cipro] 250 mg PO BID #8 tab 09/08/17 [Rx] Omeprazole [PriLOSEC] 20 mg PO DAILY #30 cap 09/08/17 [Rx] metroNIDAZOLE [Flagyl] 500 mg PO TID #12 tablet 09/08/17 [Rx] Allergies/Adverse Reactions: 3 Allergy/AdvReac Type Severity Reaction Status Date / Time sulfamethoxazole Allergy Hives Verified 09/04/17 11:30 [From Bactrim] trimethoprim [From Bactrim] Allergy Hives Verified 09/04/17 11:30 Date of admission: 09/04/17 17:31 Primary care physician: Taylor Harding CNP Consults: 09/04/17 17:46 Consult to Surgery [CONS] Routine Consulting Provider: [facility] Reason for Consult: GI bleed- EGD Time Notified: 17:48 Call Completed: Yes - Patient Status Disposition: Home, Self-Care Condition: Good Overall status at discharge: patient is back to baseline - Discharge Instructions Follow Up With: Alan Feldman MD [Family Provider] - Taylor Harding CNP [Primary Care Provider] - 09/15/17 1:15 pm (Please follow up as schedule...) Additional Instructions: Need to f/u with PCP in one week Need to f/u with Nephro in 2 weeks - Diet and Activity Activity: increase activity as tolerated Diet: low salt diet Hospital course: Ms. Mancia is a 76 year old female with past medical history of hypertension, hyperlipidemia and possible CKD-3 pt admitted with Melena and Dark colored stools. Her hemoccult came back as negative for blood. She did have lower abdominal pain with diverticulosis. So suspected possible diverticulitis and continued her abx which were initiated prior to this hospitalization at [facility]. Reviewed her CT of abd did not show any active diverticulitis. She did go for EGD and Colonoscopy no active bleedign noticed. Pt was placed on full liquid diet and advanced as she tolerated. her hb dropped down to 9.3 from 12.0., however now it is stable around 9.6. So her anemia could be due to occult GI bleed and possible CKD-3. Recommend to f/u with PCP and Nephro as an out pt. - Time Spent with Patient Total time spent providing and/or coordinating discharge services: - Constitutional Vitals: Temp Pulse Resp BP Pulse Ox 97.9 F 70 17 155/81 100 09/08/17 07:18 09/08/17 07:18 09/08/17 07:18 09/08/17 07:18 09/08/17 07:18 General appearance: Present: A&O X 3, answers questions appropriately - Head Head exam: Present: atraumatic, normal inspection - Respiratory Respiratory exam: Present: CTAB. Absent: accessory muscle use, rales, rhonchi, wheezes - Cardiovascular Cardiovascular exam: Present: RRR, +S1, +S2. Absent: diastolic murmur, gallop, rubs, systolic murmur - GI/Abdominal GI/Abdominal exam: Present: normal bowel sounds, soft. Absent: rebound, rigid, tenderness - Extremities Exam Extremities exam: Absent: calf tenderness, pedal edema, tenderness - Back Exam Back exam: Absent: CVA tenderness (L), CVA tenderness (R) - Psychiatric Psychiatric exam: Present: normal affect, normal mood - VTE Documentation of Mechanical Device: Intermittent pneumatic compression device
[2017-09-08] MEDS ORDERED: FLUARIX QUAD 2017-18 36MOS UP/PF 0.5 ML SYRINGE IM ONE (12:16)
== END 2017-09-08 12:45 | disposition home or self-care (01) | DRG 392 ==
LOC: EMEROO 11:29 → 2ANU 11:29 → SUATTDRO 17:31
PROVIDERS: ADMIT Internal Medicine; ATTEND Family Medicine
PROC: ENDOCBX (2017-09-06 11:00)
PROC: ENDOEBX (2017-09-06 11:00)

== ENCOUNTER 2017-09-23 12:08 | Inpatient (IN) ==
--- NOTE | 2017-09-23 12:32 | Emergency Department Note ---
Disposition Clinical Impression: Dehydration, Generalized weakness Abdominal pain Qualifiers: Abdominal location: generalized Qualified Code(s): R10.84 - Generalized abdominal pain Diarrhea Qualifiers: Diarrhea type: unspecified type Qualified Code(s): R19.7 - Diarrhea, unspecified UTI (urinary tract infection) Qualifiers: Urinary tract infection type: site unspecified Hematuria presence: without hematuria Qualified Code(s): N39.0 - Urinary tract infection, site not specified Disposition: Admitted As Inpatient Condition: Fair Time of Disposition: 16:20 Nausea/Vomiting/Diarrhea HPI - General Chief complaint: ED Nausea/Vomiting/Diarrhea Stated complaint: sent from PCP for Fluids Time Seen by Provider: 09/23/17 12:29 Source: patient Mode of arrival: ambulatory Limitations: no limitations Nursing Notes Reviewed: Yes Vital Signs Reviewed: Yes - History of Present Illness HPI Narrative: Patient is a 76-year-old female with past medical history of hypertension, recent diagnosis of diverticulitis of the sigmoid colon, recently discharged on 09/08/17 with Cipro and Flagyl. She presents today due to diarrhea. Patient states that she is still on antibiotics for diverticulitis. She currently lives at home with her daughter. Over the past 3 days, she has had significant watery, foul-smelling, mucous diarrhea. She denies any nausea, vomiting, chest pain, shortness of breath. She does admit to subjective fever and chills, generalized abdominal cramping that mainly occurs when she is defecating. Denies seeing any blood in her stool. She also admits to burning with urination but denies any hematuria. She is unable to tell me if this generalized abdominal pain is different or the same as what she experienced with her sigmoid diverticulitis. She states that she cannot keep up with fluid intake due to the profuse amount of diarrhea that she is having. She feels very dehydrated and generally weak from dehydration. - Related Data Home Medications Medication Instructions Recorded Confirmed Ferrous Sulfate [Iron] 325 mg PO DAILY 09/23/17 09/23/17 Hydrochlorothiazide [Microzide] 12.5 mg PO DAILY 09/23/17 09/23/17 LORazepam [Ativan] 0.5 mg PO DAILY PRN 09/23/17 09/23/17 Metoprolol [Lopressor] 50 mg PO BID 09/23/17 09/23/17 Quinapril HCl [Accupril] 20 mg PO DAILY 09/23/17 09/23/17 Tramadol HCl [Ultram] 50 mg PO Q6H PRN 09/23/17 09/23/17 Previous Rx's Medication Instructions Recorded Omeprazole [PriLOSEC] 20 mg PO DAILY #30 cap 09/08/17 Allergies Allergy/AdvReac Type Severity Reaction Status Date / Time sulfamethoxazole Allergy Hives Verified 09/23/17 16:04 [From Bactrim] trimethoprim [From Bactrim] Allergy Hives Verified 09/23/17 16:04 All systems ED: reviewed and negative except as stated. Constitutional: Reports: fever, chills Cardiovascular: Denies: chest pain, palpitations Respiratory: Denies: cough, dyspnea Gastrointestinal: Reports: abdominal pain, diarrhea. Denies: nausea, vomiting, constipation, hematemesis, melena, hematochezia Genitourinary: Reports: dysuria. Denies: urgency, frequency, hematuria Neurological: Denies: headache, weakness, numbness, paresthesias Past Medical History - Past Medical History Attestation: Yes The following information was validated with the patient. Source: patient Medical history: Reports: hypertension Surgical history: Reports: hysterectomy Psychiatric history: Reports: no psych history WASH TUB MACHINE OPERATOR history: Reports: no WASH TUB MACHINE OPERATOR history - Social History Smoking Status: Never smoker Smokeless Tobacco Status: No Alcohol use: Reports: none Drug use: Reports: none Physical Exam - General Limitations: no limitations General appearance: alert, other (lying in bed, appears generally fatigued) - Head Head exam: atraumatic, normocephalic, normal inspection - Eye Eye exam: Present: normal appearance, PERRL, EOMI - ENT ENT exam: mucous membranes dry, other (No posterior oropharynx lesions or erythema) - Neck Neck exam: Present: normal inspection, full ROM, trachea midline - Chest Chest inspection: Present: normal inspection, symmetric chest wall rise - Respiratory Respiratory exam: Present: normal lung sounds bilaterally - Cardiovascular Cardiovascular exam: Present: regular rate, normal rhythm, normal heart sounds - Abdominal Exam Abdominal exam: Present: soft, tenderness (mild generalized tenderness). Absent : distention, guarding, rebound, rigidity - Extremities Exam Extremities exam: Present: normal inspection, full ROM. Absent: tenderness, pedal edema - Neurological Exam Neurological exam: Present: alert, oriented X3 - Psychiatric Psychiatric exam: Present: normal affect, normal mood - Skin Skin exam: Present: warm, dry, intact, normal color. Absent: rash Course Course Narrative: Patient hypertensive on presentation, otherwise the rest of the vitals are WNL. Physical exam shows a generally fatigued patient with dry mucous membranes and generalized mild abdominal tenderness. Recent antibiotic use, currently still taking them, and recent sigmoid diverticulitis. Unable to tell me if this pain is the same or different as previous sigmoid diverticulitis pain. Concern currently for c diff vs diverticulitis. Will give the patient 1L NS, obtain basic cbc, bmp, UA for dysuria, and c diff PCR. Will also obtain CT of abd and pelvis with IV contrast to assess for any worsening or continued diverticulitis. 15:47 CT abd pelvis shows: IMPRESSION: No acute process within the abdomen or pelvis. No acute diverticulitis is identified.Uncomplicated sigmoid anastomosis.Small right pleural effusion.Cholecystectomy. New mild bilateral pelvicaliectasis likely within normal variation. EKG shows NSR with no acute ST changes. Trop negative. WBC 4.1, Hgb shows chronic anemai at baseline. Potassium 2.7, will give oral potassium replacement. UA shows UTI, will give rocephin 2g. Patient given 1L of NS, will repeat bolus 1L. Still appears generally weak, dehydrated, will admit for dehydration, UTI, gen weakness, hypokalemia. Abdomen/Pelvis CT 09/23/17 12:50 IMPRESSION: No acute process within the abdomen or pelvis. No acute diverticulitis is identified. Uncomplicated sigmoid anastomosis. Small right pleural effusion. Cholecystectomy. New mild bilateral pelvicaliectasis likely within normal variation. D/ / 09/23/2017 15:39:42 Saud Souza MD / jennifer Interpreting Provider: Saud Souza MD Vital Signs Temperature 97.4 F L 09/23/17 12:21 Pulse Rate 77 09/23/17 12:21 Respiratory Rate 16 09/23/17 12:21 Blood Pressure 195/78 09/23/17 12:21 O2 Sat by Pulse Oximetry 97 09/23/17 12:21 Temperature 97.4 F L 09/23/17 12:21 Pulse Rate 77 09/23/17 12:21 Respiratory Rate 16 09/23/17 17:37 Blood Pressure 161/66 09/23/17 17:37 O2 Sat by Pulse Oximetry 95 09/23/17 16:17 Oxygen Delivery Oxygen Delivery Room Air Nausea/Vomiting/Diarrhea - [facility] Narrative Medical decision making narrative: 15:47 CT abd pelvis shows: IMPRESSION: No acute process within the abdomen or pelvis. No acute diverticulitis is identified.Uncomplicated sigmoid anastomosis.Small right pleural effusion.Cholecystectomy. New mild bilateral pelvicaliectasis likely within normal variation. EKG shows NSR with no acute ST changes. Trop negative. WBC 4.1, Hgb shows chronic anemai at baseline. Potassium 2.7, will give oral potassium replacement. UA shows UTI, will give rocephin 2g. Patient given 1L of NS, will repeat bolus 1L. Still appears generally weak, dehydrated, will admit for dehydration, UTI, gen weakness, hypokalemia. - Medical Records Medical records reviewed: Yes I reviewed the patient's medical records. - Lab Data Lab results reviewed: Yes I reviewed the patient's lab results. Result diagrams: 09/23/17 12:51 09/23/17 13:36 Lab Results 09/23/17 09/23/17 09/23/17 Range/Units 12:14 12:51 12:51 WBC 4.1 L (4.3-11.1) K/mcL RBC 3.29 L (3.82-4.97) M/mcL Hgb 10.6 L (11.5-15.4) g/dL Hct 33.5 L (35.3-44.9) % MCV 101.8 H (83.0-100.0) fL MCH 32.2 (28.0-33.3) pg MCHC 31.6 (31.6-35.5) g/dL RDW 14.6 H (11.5-14.5) % Plt Count 196 (140-400) K/mcL MPV 12.4 (9.4-12.4) fL Immature Gran % 0.5 (0-4) % Seg Neutrophils % 63.7 % Lymphocytes % 25.8 % Monocytes % 8.5 % Eosinophils % 1.0 % Basophils % 0.5 % Neutrophils # 2.6 (1.6-8.9) K/mcL Lymphocytes # 1.1 (0.6-4.6) K/mcL Monocytes # 0.4 (0.0-1.3) K/mcL Eosinophils # 0.0 (0.0-0.6) K/mcL Basophils # 0.0 (0.0-0.2) K/mcL Sodium (136-145) mEq/L Potassium (3.5-4.5) mEq/L Chloride (98-109) mEq/L Carbon Dioxide (19-29) mEq/L BUN (7-20) mg/dL Creatinine (0.57-1.11) mg/dL Est GFR ( Amer) (> 60) Est GFR (Non-Af Amer) (> 60) BUN/Creatinine Ratio (6-26) Glucose (70-99) mg/dL Calculated Osmolality (280-300) Calcium (8.6-10.8) mg/dL Troponin I (0-0.03) ng/mL Urine Color Yellow (Yellow) Urine Clarity Turbid A (Clear) Urine pH 7.5 (5.0-8.0) pH Units Ur Specific Strong 1.017 (1.010-1.025) Urine Protein 100 H (Neg-Trace) mg/dL Urine Glucose (UA) Normal (Normal) mg/dL Urine Ketones Trace H (Negative) mg/dL Urine Blood Moderate H (Negative) Urine Nitrite Positive A (Negative) Urine Bilirubin Negative (Negative) Urine Urobilinogen Normal (Normal) mg/dL Ur Leukocyte Esterase Large H (Negative) Urine Microscopic RBC 15-30 H (0-3) per hpf Urine Microscopic WBC TNTC H (0-3) per hpf Ur Squamous Epith Cells Many H (None-Few) per lpf Urine Bacteria Many H (None-Few) per hpf Hyaline Casts None Seen (None-Few) per lpf Ur Culture Indicated? YES A (NO) Specimen Rejected Hemolyzed 09/23/17 09/23/17 Range/Units 13:33 13:36 WBC (4.3-11.1) K/mcL RBC (3.82-4.97) M/mcL Hgb (11.5-15.4) g/dL Hct (35.3-44.9) % MCV (83.0-100.0) fL MCH (28.0-33.3) pg MCHC (31.6-35.5) g/dL RDW (11.5-14.5) % Plt Count (140-400) K/mcL MPV (9.4-12.4) fL Immature Gran % (0-4) % Seg Neutrophils % % Lymphocytes % % Monocytes % % Eosinophils % % Basophils % % Neutrophils # (1.6-8.9) K/mcL Lymphocytes # (0.6-4.6) K/mcL Monocytes # (0.0-1.3) K/mcL Eosinophils # (0.0-0.6) K/mcL Basophils # (0.0-0.2) K/mcL Sodium 147 H (136-145) mEq/L Potassium 2.7 L (3.5-4.5) mEq/L Chloride 107 (98-109) mEq/L Carbon Dioxide 30 H (19-29) mEq/L BUN 12 (7-20) mg/dL Creatinine 0.84 (0.57-1.11) mg/dL Est GFR ( Amer) > 60 (> 60) Est GFR (Non-Af Amer) > 60 (> 60) BUN/Creatinine Ratio 14 (6-26) Glucose 87 (70-99) mg/dL Calculated Osmolality 303 H (280-300) Calcium 8.3 L (8.6-10.8) mg/dL Troponin I 0.01 (0-0.03) ng/mL Urine Color (Yellow) Urine Clarity (Clear) Urine pH (5.0-8.0) pH Units Ur Specific Strong (1.010-1.025) Urine Protein (Neg-Trace) mg/dL Urine Glucose (UA) (Normal) mg/dL Urine Ketones (Negative) mg/dL Urine Blood (Negative) Urine Nitrite (Negative) Urine Bilirubin (Negative) Urine Urobilinogen (Normal) mg/dL Ur Leukocyte Esterase (Negative) Urine Microscopic RBC (0-3) per hpf Urine Microscopic WBC (0-3) per hpf Ur Squamous Epith Cells (None-Few) per lpf Urine Bacteria (None-Few) per hpf Hyaline Casts (None-Few) per lpf Ur Culture Indicated? (NO) Specimen Rejected - Radiology Data Radiology results reviewed: Yes I reviewed the patient's radiology results. Abdomen/Pelvis CT 09/23/17 12:50 IMPRESSION: No acute process within the abdomen or pelvis. No acute diverticulitis is identified. Uncomplicated sigmoid anastomosis. Small right pleural effusion. Cholecystectomy. New mild bilateral pelvicaliectasis likely within normal variation. D/ / 09/23/2017 15:39:42 Saud Souza MD / jennifer Interpreting Provider: Saud Souza MD - EKG Data EKG attestation: Yes I reviewed and interpreted this EKG. EKG results narrative: 09/23/2017 at 16:09. Normal sinus rhythm. Rate 64. ND 366. QRS 102. QTC 374. Normal axis. No acute ST elevation or depression. S.B.A.R. - S.Bethany.Derian Situation: Demographics, MOA Background: Presenting Complaint, Relevant PMH, Meds, & Allergies Assessment: Vital Signs, Course and respsone to treatment, Exam Concerns, Patient/Family Expectation, Pertinant Lab Results, Outstanding Labs Recommendation: Barrier(s) to disposition, Recommendation based on pending studies, treatments, or consults S.B.Derian Report Given to: Dr. adrianne Chaves Repor Time: 16:20 Attestation Statement - Attestation Attestation: I, Johnie Perales, examined this patient and my medical decision-making was reviewed with the DUPLICATING MACHINE OPERATOR/PA/Advanced Practice Nurse/Resident Physician. I agree with the documented findings, disposition and treatment plan as described except to the extent set forth below. 76-year-old female presents emergency Department with concerns of persistent diarrhea as well as dysuria. Patient feels increasingly weak over the past few days. Patient states she was recently admitted to the hospital for sigmoid diverticulitis. She finished a course of ciprofloxacin and Flagyl and had felt improved however she started to again have diarrhea within the past week. Patient has tenderness to palpation of the generalized abdomen, worse in the left lower quadrant in the emergency department. CT of the abdomen was ordered to evaluate for returned diverticulitis or perforation. Urinalysis showed significant area tract infection. She was given ceftriaxone in the emergency department. Patient will be admitted to the hospital for further evaluation of her weakness and continuation of her care.
[2017-09-23] MEDS ORDERED: 0.9 % Sodium Chloride 1,000 ML IVC ONE ×2 (12:43→15:46)
[2017-09-23 13:00] LABS: Bilirubin,Urine Negative (Negative); Blood,Urine Moderate (Negative); Clarity,Urine Turbid (Clear); Color,Urine Yellow (Yellow); Glucose,Urine (UA) Normal (Normal); Ketones,Urine Trace mg/dL (Negative); Leukocyte Esterase,Urine Large (Negative); Nitrite,Urine Positive (Negative); PH,Urine 7.5 pH Units (5.0-8.0); Protein,Urine 100 mg/dL (Neg-Trace); Specific Gravity,Urine 1.017 (1.010-1.025); Urobilinogen,Urine Normal (Normal)
[2017-09-23 13:01] LABS: Basophils % 0.5 %; Hematocrit 33.5 % (35.3-44.9); Hemoglobin 10.6 g/dL (11.5-15.4); Immature Granulocytes % 0.5 % (0-4); Lymphocytes # 1.1 K/mcL (0.6-4.6); Lymphocytes % 25.8 %; Mean Corpuscular HGB Conc 31.6 g/dL (31.6-35.5); Mean Corpuscular Hemoglobin 32.2 pg (28.0-33.3); Mean Corpuscular Volume 101.8 fL (83.0-100.0); Mean Platelet Volume 12.4 fL (9.4-12.4); Monocytes # 0.4 K/mcL (0.0-1.3); Monocytes % 8.5 %; Neutrophils # 2.6 K/mcL (1.6-8.9); Platelet Count 196 K/mcL (140-400); Red Blood Count 3.29 M/mcL (3.82-4.97); Red Cell Distribution Width 14.6 % (11.5-14.5); Segmented Neutrophils % 63.7 %
[2017-09-23 13:04] LABS: Bacteria,Urine Many per hpf (None-Few); Hyaline Casts,Urine None Seen per lpf (None-Few); RBC,Urine 15-30 per hpf (0-3); Squamous Epithelial Cell,Urine Many per lpf (None-Few); WBC,Urine TNTC per hpf (0-3)
[2017-09-23 14:11] LABS: BUN/Creatinine Ratio 14 (6-26); Blood Urea Nitrogen 12 mg/dL (7-20); Calcium 8.3 mg/dL (8.6-10.8); Carbon Dioxide 30 mEq/L (19-29); Chloride 107 mEq/L (98-109); Glucose 87 mg/dL (70-99); Osmolality,Calculated 303 (280-300); Potassium 2.7 mEq/L (3.5-4.5); Sodium 147 mEq/L (136-145); eGFR For African Americans > 60 (> 60); eGFR For Non-African Americans > 60 (> 60)
[2017-09-23] MEDS ORDERED: cefTRIAXone 2,000 MG in Water for inj. (sterile) 20 ML IVP ONE (15:33)
[2017-09-23] MEDS ORDERED: Potassium Chloride Elixir 20 MEQ/15 ML UDC PO ONE (15:49)
[2017-09-23] MEDS ORDERED: 0.9 % Sodium Chloride 1,000 ML IVC SCH (20:45)
[2017-09-23] MEDS ORDERED: Naloxone 0.4 MG/ML INJ IVP PRN (20:45)
--- NOTE | 2017-09-23 20:55 | Internal Med History&Physical ---
<Hoang Ramirez - Last Filed: 09/23/17 22:03> Date of Encounter: 09/23/17 Time of Encounter: 20:50 Assessment and Plan (1) Diarrhea Current visit: Yes Status: Acute 3 day history of watery foul-smelling diarrhea with mucus in her stool. He presents today due to weakness and dehydration. She reports she has not had a bowel movement since yesterday afternoon. Was recently placed on ciprofloxacin and Flagyl for treatment of diverticulitis. I am concerned that she may have Clostridium difficile. Send stool for testing for C-diff Hold vancomycin and flagyl as she is not having active bowel movements. awaiting results of PCR; consider ATB therapy based on results Patient received 2 L fluid bolus in emergency department. Continue rehydration with 0.9% normal saline with 40meq of potassium at 100 mL per hour Patient is hypokalemic due to diarrhea; recheck stat potassium and magnesium now. Encourage oral fluid intake Continuous telemetry and continuous O2 monitoring Strict intake and output CBC, CMP, mag and phosphorus in the morning Qualifiers: Diarrhea type: unspecified type Qualified Code(s): R19.7 - Diarrhea, unspecified (2) UTI (urinary tract infection) Current visit: Yes Status: Acute Continues to report a burning sensation with voiding. Urinalysis showed turbid urine with large leukocyte esterase. She was given ceftriaxone 2 g in the emergency department. We will hold off on antibiotic therapy until urine culture results. I feel at this time antibiotics may further exacerbate her diarrhea Qualifiers: Urinary tract infection type: site unspecified Hematuria presence: without hematuria Qualified Code(s): N39.0 - Urinary tract infection, site not specified (3) Generalized weakness Current visit: Yes Status: Acute She has a three-day history of diarrhea, patient is dehydrated and hypokalemia potassium of 2.7. I suspect she may have Clostridium difficile. All of this is contributing to her generalized weakness. See plan above (4) Dehydration Current visit: Yes Status: Acute Three-day history of diarrhea following antibody treatment for diverticulitis. She reports poor oral intake and multiple watery bowel movements over the last 3 days. He received 2 L of IV fluid in the emergency department. Continue to rehydrate. See plan above (5) Sigmoid diverticulitis Current visit: Yes Status: Acute Recent diagnosis of sigmoid diverticulitis on 09/08/17. Continues to endorse left lower quadrant abdominal pain. CT of abdomen and pelvis completed today reveals no acute process. No acute diverticulitis identified. However, her abdomen remains tender to palpation in the left lower quadrant. The patient may also have Clostridium difficile associated with antibiotic use she has been reporting multiple episodes of watery mucus bowel movements that are foul- smelling over the last 3 days. She does not appear to have acute abdomen at this time. see treatment plan above (6) Abdominal pain Current visit: Yes Status: Acute See plan above Qualifiers: Abdominal location: generalized Qualified Code(s): R10.84 - Generalized abdominal pain (7) Hypokalemia Current visit: Yes Status: Acute Potassium of 2.7 per chemistry. She is reporting watery diarrhea for the last 3 days with poor oral intake. She denies feeling any palpitations, EKG normal sinus rhythm. She does admit to some generalized weakness. 40 meq oral potassium given in the emergency department Recheck stat serum potassium and magnesium now Replace potassium based upon results of stat labs CMP and mag in the morning Hold HCTZ (8) HTN (hypertension) Current visit: Yes Status: Chronic History of hypertension, she was hypertensive on arrival to the emergency department with systolic blood pressures in the 190s they have since decreased to the 160s. She remains hypertensive with SBP in the 160s. Restart beta inez and ALF inhibitor, given metoprolol now Qualifiers: Hypertension type: essential hypertension Qualified Code(s): I10 - Essential (primary) hypertension (9) Anemia Current visit: Yes Status: Acute Ongoing anemia since August 2017. H&H appears to be stable at 10.6 today. She denies any hematemesis, hematochezia, melena. She remains hemodynamically stable. Recheck CBC in the morning Qualifiers: Anemia type: due to chronic kidney disease Chronic kidney disease stage: stage 3 (moderate) Qualified Code(s): N18.3 - Chronic kidney disease, stage 3 (moderate); D63.1 - Anemia in chronic kidney disease; D63.1 - Anemia in chronic kidney disease (10) DVT prophylaxis Current visit: Yes Status: Acute Heparin 5000 units subcutaneous daily Internal Medicine - H&P: HPI Chief complaint: Diarrhea, dehydration Admitted From: Home Plans for Post Hospital Care: Home History of present illness: Ms. Mancia is a 76 year old female with a PMH of hypertension and diverticulitis. She reports that she was just here on 09/08/17 and diagnosed with diverticulitis. She was sent home on Cipro and Flagyl. She presents to [facility] today with dehydration and diarrhea which began approximately 3 days ago. She reports watery, foul-smelling diarrhea with some mucus. She states her last bowel movement was yesterday morning. She reports that she feels generally weak and dehydrated. She denies any nausea, vomiting, fevers, shortness of breath. She admits to chills, fatigue, dysuria, and left lower quadrant abdominal pain without radiation. Workup in the ED included urinalysis and CT of abdomen and pelvis. CT of abdomen and pelvis negative for diverticulitis or any acute abdominal process. Urinalysis indicates she likely has a UTI. Past Med Surg Social Fam HX - Past Medical History Medical history: hypertension Psychiatric history: depression - Past Surgical History Surgical History: cholecystectomy, hysterectomy - Social History Smoking Status: Never smoker Smokeless Tobacco Status: No Alcohol use: none Drug use: none - Family History Mother Hx Family Cardiac Disorders: Yes Hx Family Respiratory Disorders: No Hx Family Cancer: No Hx Family GI Disorders: No Hx Family Endocrine Disorder: No Hx Family Neuromuscular Disorders: Yes Hx Family Neurologic Disorders: No Hx Family HEENT Disorders: No Hx Family Autoimmune Disorders: No Internal Medicine - H&P: Meds Omeprazole [PriLOSEC] 20 mg PO DAILY #30 cap 09/08/17 [Rx] Ferrous Sulfate [Iron] 325 mg PO DAILY 09/23/17 [History] Hydrochlorothiazide [Microzide] 12.5 mg PO DAILY 09/23/17 [History] LORazepam [Ativan] 0.5 mg PO DAILY PRN 09/23/17 [History] Metoprolol [Lopressor] 50 mg PO BID 09/23/17 [History] Quinapril HCl [Accupril] 20 mg PO DAILY 09/23/17 [History] Tramadol HCl [Ultram] 50 mg PO Q6H PRN 09/23/17 [History] 3 Allergy/AdvReac Type Severity Reaction Status Date / Time sulfamethoxazole Allergy Hives Verified 09/23/17 16:04 [From Bactrim] trimethoprim [From Bactrim] Allergy Hives Verified 09/23/17 16:04 All Systems PM: A 10-system review of systems was performed and is negative for pertinent findings except as documented above in the HPI. - Constitutional Constitutional: chills, fatigue, weakness (Generalized), no fever(s) - Cardiovascular Cardiovascular ROS IM: no chest pain, no diaphoresis, no dyspnea, no lightheadedness, no palpitations, no syncope - Respiratory Respiratory: no cough, no dyspnea, no wheezing, no excessive phlegm production - Gastrointestinal Gastrointestinal: abdominal pain (Left lower quadrant), diarrhea (As per history of present illness), no hematemesis, no hematochezia, no melena, no nausea, no vomiting - Genitourinary Genitourinary: dysuria, no flank pain, no hematuria, no urinary frequency, no urinary incontinence, no urinary urgency - Musculoskeletal Musculoskeletal ROS IM: no numbness, no tingling - Integumentary Integumentary IM: no rash, no unusual bruising - Neurological Neurological ROS: weakness (Generalized), no focal weakness, no headache(s), no numbness, no tingling, no tremor(s) - Constitutional Vitals: Temp Pulse Resp BP Pulse Ox 97.9 F 72 16 164/73 97 09/23/17 19:00 09/23/17 19:00 09/23/17 19:00 09/23/17 19:00 09/23/17 19:00 General appearance: Present: cooperative, A&O X 3, no acute distress, answers questions appropriately - Head Head exam: Present: atraumatic, normocephalic - Eye Eye exam: Present: PERRL, conjuntiva pink, sclera anicteric Pupils: Present: PERRL - Neck Neck exam general surgery: Present: supple, trachea midline. Absent: lymphadenopathy - Respiratory Respiratory exam: Present: CTAB. Absent: accessory muscle use, rales, rhonchi, wheezes - Cardiovascular Cardiovascular exam: Present: RRR, +S1, +S2. Absent: diastolic murmur, gallop, rubs, systolic murmur - GI/Abdominal GI/Abdominal exam: Present: normal bowel sounds, soft, tenderness (LLQ). Absent : distended, firm, guarding, mass, rebound, rigid Additional comments: No pain at McBurney's point negative for Rovsing sign, does not appear to have an acute abdomen - Extremities Exam Extremities exam: Present: warm, radial pulses palpable and symmetrical. Absent : calf tenderness, cyanotic, pedal edema - Neurological Exam Neurological exam: Present: CN II-XII intact, oriented X3, no focal deficits. Absent: pronater drift, facial droop, speech deficit - Skin Skin exam: Present: dry, intact Internal Med - H&P Results - Labs CBC & Chem 7: 09/23/17 12:51 09/23/17 20:36 - EKG Data -: EKG Interpreted by Myself EKG shows normal: sinus rhythm Rate: normal - EKG Data Prior EKG available for review: yes When compared to previous EKG: there is no significant change EKG comments: Normal sinus rhythm rate of 64 09/23/17 20:59 - Diagnostic Studies CT scan - pelvis Status: image reviewed by me Additional comments: no acute process with no abdomen or pelvis, no acute diverticulitis identified <Sourav Calderon - Last Filed: 09/24/17 01:03> Date of Encounter: 09/23/17 Time of Encounter: 23:00 - Gastrointestinal Gastrointestinal: cramping, diarrhea, nausea, no hematemesis, no hematochezia, no melena, no vomiting - Genitourinary Genitourinary: dysuria, no flank pain, no hematuria - Musculoskeletal Musculoskeletal ROS IM: no back pain - Neurological Neurological ROS: weakness - Endocrine Endocrine IM: no polydipsia, no polyuria - Allergic/Immunologic Allergic/Immunologic: no GI upset with certain foods - Constitutional Vitals: Temp Pulse Resp BP Pulse Ox 98.3 F 55 16 157/72 97 09/23/17 23:05 09/23/17 23:05 09/23/17 23:05 09/23/17 23:05 09/23/17 23:05 General appearance: Present: A&O X 3, no acute distress Exam: appears moderately dehydrated - Eye Eye exam: Present: EOMI, PERRL. Absent: scleral icterus - ENT ENT exam: Present: mucous membranes dry - Neck Neck exam general surgery: Present: full ROM, supple. Absent: tenderness - Respiratory Respiratory exam: Present: CTAB. Absent: rales, rhonchi, wheezes - Cardiovascular Cardiovascular exam: Present: RRR, +S1, +S2 - GI/Abdominal GI/Abdominal exam: Present: normal bowel sounds, soft, tenderness (minimal tenderness on my exam). Absent: guarding, rebound - Extremities Exam Extremities exam: Present: full ROM, warm, radial pulses palpable and symmetrical. Absent: calf tenderness - Back Exam Back exam: Absent: CVA tenderness (L), CVA tenderness (R) - Skin Skin exam: Present: dry, warm. Absent: rash Internal Med - H&P Results - Labs CBC & Chem 7: 09/23/17 12:51 09/23/17 20:36 Labs: BMP 09/23/17 20:36 Potassium 3.0 L - Attending Attestation I discussed the patient [place], PMH, ROS, lab data, and exam findings with Hoang Ramirez CNP. I then saw and examined patient independently as well. Patient appears dehydrated and weak. She is not in any significant distress. I reviewed her recent imaging studies. She has had [address] scans this month -- none of which confirm diverticulitis. She may have, however, had diverticultis, based on clinical assessment earlier in the month. I have a lower suspicion for C. Diff. Colitis and suspect that she is having antibiotic- associated diarrhea instead. I, therefore, agree with Hoang's plan to stop antibiotics for now, hydrate patient, and correct electrolytes. She has not had BM in over 24 hours. We will obtain GI panel with her next BM. If findings confirm C. Diff, we will then resume Flagyl and add oral vancomycin. Other than my comments above and noted exam findings, I agree with Hoang's assessment and plan.
[2017-09-23] MEDS: *HR* LORazepam 0.5 MG TABLET PO PRN (21:28)
[2017-09-23 21:30] LABS: Magnesium 1.2 mg/dL (1.6-2.6)
[2017-09-23] MEDS ORDERED: Magnesium Sulfate 2 GM in D5% in Water 100 ML IVPB ONE (22:02)
[2017-09-23] MEDS: 0.9 % Sodium Chloride w KCl 40 MEQ/1,000 ML MLS IVC SCH (23:41)
[2017-09-24] MEDS: *HR* Heparin 5,000 UNIT/ML VIAL SQ SCH ×2 (05:50→17:04)
[2017-09-24 05:53] LABS: Basophils % 0.6 %; Eosinophils % 1.2 %; Hematocrit 30.2 % (35.3-44.9); Hemoglobin 9.4 g/dL (11.5-15.4); Immature Granulocytes % 0.3 % (0-4); Lymphocytes # 1.1 K/mcL (0.6-4.6); Lymphocytes % 33.3 %; Mean Corpuscular HGB Conc 31.1 g/dL (31.6-35.5); Mean Corpuscular Volume 102.7 fL (83.0-100.0); Mean Platelet Volume 12.5 fL (9.4-12.4); Monocytes # 0.3 K/mcL (0.0-1.3); Monocytes % 10.2 %; Neutrophils # 1.8 K/mcL (1.6-8.9); Platelet Count 163 K/mcL (140-400); Red Blood Count 2.94 M/mcL (3.82-4.97); Red Cell Distribution Width 14.6 % (11.5-14.5); Segmented Neutrophils % 54.4 %
[2017-09-24 05:54] LABS: Alanine Aminotransferase 7 Units/L (0-55); Albumin 2.3 g/dL (3.5-5.0); Albumin/Globulin Ratio 0.6 (1.1-2.2); Alkaline Phosphatase 68 Units/L (38-126); Aspartate Amino Transferase 12 Units/L (5-34); BUN/Creatinine Ratio 12 (6-26); Bilirubin,Total 0.2 mg/dL (0.2-1.2); Blood Urea Nitrogen 9 mg/dL (7-20); Calcium 7.2 mg/dL (8.6-10.8); Carbon Dioxide 26 mEq/L (19-29); Chloride 112 mEq/L (98-109); Globulin 3.6 g/dL (2.4-3.5); Glucose 88 mg/dL (70-99); Osmolality,Calculated 298 (280-300); Phosphorous 1.9 mg/dL (2.3-4.7); Potassium 3.1 mEq/L (3.5-4.5); Sodium 145 mEq/L (136-145); Total Protein 5.9 g/dL (6.0-8.3); eGFR For African Americans > 60 (> 60); eGFR For Non-African Americans > 60 (> 60)
[2017-09-24] MEDS ORDERED: Potassium Chloride 40 MEQ, Lidocaine 1% 2 ML in D5% in Water 500 ML IVPB ONE (07:40)
--- NOTE | 2017-09-24 07:41 | Internal Med Progress Note ---
Date of Encounter: 09/24/17 Time of Encounter: 07:38 - Assessment and plan (1) Hypokalemia Current Visit: Yes Status: Acute Assessment and plan: discussed with nurse replacement protocol (2) HTN (hypertension) Current Visit: Yes Status: Chronic Assessment and plan: not well controlled will adjust meds Qualifiers: Hypertension type: essential hypertension Qualified Code(s): I10 - Essential (primary) hypertension (3) Sigmoid diverticulitis Current Visit: Yes Status: Acute Assessment and plan: recent diagnosis ct shows no acute diverticulitis (4) Abdominal pain Current Visit: Yes Status: Acute Assessment and plan: due to dehydration and dirrhea Qualifiers: Abdominal location: generalized Qualified Code(s): R10.84 - Generalized abdominal pain (5) Diarrhea Current Visit: Yes Status: Acute Assessment and plan: concern for c dificil colilits result pending Qualifiers: Diarrhea type: unspecified type Qualified Code(s): R19.7 - Diarrhea, unspecified (6) Dehydration Current Visit: Yes Status: Acute Assessment and plan: due to diarrhea (7) Generalized weakness Current Visit: Yes Status: Acute (8) UTI (urinary tract infection) Current Visit: Yes Status: Acute Assessment and plan: cultures sents not started on antibiotics yet due to concern for c deficil Qualifiers: Urinary tract infection type: site unspecified Hematuria presence: without hematuria Qualified Code(s): N39.0 - Urinary tract infection, site not specified - Subjective Interval history: Patient recently discharged with diagnosis of diverticulitis on flagyl and cipro returns with diarrhea x 3 days c dif result pending.. this morning no bowel movement yet - Constitutional Vitals: Temp Pulse Resp BP Pulse Ox 97.9 F 72 16 185/94 99 09/24/17 06:23 09/24/17 06:23 09/24/17 06:23 09/24/17 06:23 09/24/17 06:23 General appearance: Present: A&O X 3, no acute distress - Eye Eye exam: Present: PERRL, conjuntiva pink, sclera anicteric Pupils: Present: PERRL - Neck Neck exam general surgery: Present: supple, trachea midline. Absent: lymphadenopathy - Respiratory Respiratory exam: Present: CTAB. Absent: accessory muscle use, rales, rhonchi, wheezes - Cardiovascular Cardiovascular exam: Present: RRR, +S1, +S2. Absent: diastolic murmur, gallop, rubs, systolic murmur - GI/Abdominal GI/Abdominal exam: Present: normal bowel sounds, soft, no peritoneal signs. Absent: distended, tenderness - Extremities Exam Extremities exam: Present: warm, radial pulses palpable and symmetrical. Absent : calf tenderness, cyanotic, pedal edema Internal Medicine: Result - Labs CBC & Chem 7: 09/24/17 05:06 09/24/17 05:06 Labs: Short CBC 09/24/17 Range/Units 05:06 WBC 3.3 L (4.3-11.1) K/mcL Hgb 9.4 L (11.5-15.4) g/dL Hct 30.2 L (35.3-44.9) % Plt Count 163 (140-400) K/mcL Neutrophils # 1.8 (1.6-8.9) K/mcL BMP 09/23/17 09/24/17 20:36 05:06 Sodium 145 Potassium 3.0 L 3.1 L Chloride 112 H Carbon Dioxide 26 BUN 9 Creatinine 0.77 Glucose 88 Calcium 7.2 L Liver Function 09/24/17 Range/Units 05:06 Total Bilirubin 0.2 (0.2-1.2) mg/dL AST 12 (5-34) Units/L ALT 7 (0-55) Units/L Alkaline Phosphatase 68 (38-126) Units/L Albumin 2.3 L (3.5-5.0) g/dL Consult Discharge Plan - Plan Referrals: Taylor Harding CNP [Primary Care Provider] - Alan Feldman MD [Family Provider] -
[2017-09-24] MEDS: traMADol 50 MG TABLET PO PRN (08:30)
[2017-09-24] MEDS ORDERED: hydroCHLOROthiazide 25 MG TABLET PO SCH (09:00)
[2017-09-24] MEDS: 0.9 % Sodium Chloride w KCl 40 MEQ/1,000 ML MLS IVC SCH ×2 (11:52→22:05)
[2017-09-24] MEDS: Lactobacillus 1 EACH CAP.SPRINK PO SCH ×2 (12:02→19:44)
[2017-09-25 05:23] LABS: BUN/Creatinine Ratio 10 (6-26); Blood Urea Nitrogen 8 mg/dL (7-20); Calcium 7.7 mg/dL (8.6-10.8); Carbon Dioxide 22 mEq/L (19-29); Chloride 116 mEq/L (98-109); Glucose 105 mg/dL (70-99); Osmolality,Calculated 293 (280-300); Sodium 142 mEq/L (136-145); eGFR For African Americans > 60 (> 60); eGFR For Non-African Americans > 60 (> 60)
[2017-09-25 05:24] LABS: Potassium 4.8 mEq/L (3.5-4.5)
[2017-09-25] MEDS: traMADol 50 MG TABLET PO PRN ×2 (05:55→15:58)
[2017-09-25] MEDS: 0.9 % Sodium Chloride w KCl 40 MEQ/1,000 ML MLS IVC SCH (05:56)
[2017-09-25] MEDS: *HR* Heparin 5,000 UNIT/ML VIAL SQ SCH ×2 (05:58→17:37)
[2017-09-25] MEDS: Lactobacillus 1 EACH CAP.SPRINK PO SCH ×2 (09:29→20:39)
--- NOTE | 2017-09-25 12:06 | Infectious Disease Consult ---
Date of Encounter: 09/25/17 Time of Encounter: 12:02 Assessment and Plan (1) C. difficile diarrhea Status: Acute Assessment and plan: Likely secondary to recent antibiotic use. C. diff PCR positive. Mild, uncomplicated. No SIRS criteria and the patient does not appear toxic. Start Vancomycin 125mg PO QID. Given that the patient also has a UTI and will require antibiotics, she will likely benefit from a prolonged course of PO antibiotic. Continue C. diff contact precautions. Duration of treatment depends on the clinical picture. Continue supportive care. (2) UTI (urinary tract infection) Status: Acute Assessment and plan: Causative organism Citrobacter freundii. Uncomplicated. Start Cefepime 2 grams IV Q12H. Duration of treatment depends on the clinical picture, but will likely transition to PO Fosfomycin when ready for discharge to complete the course of treatment. Monitor renal function and dose-adjust antibiotics. Qualifiers: Urinary tract infection type: site unspecified Hematuria presence: without hematuria Qualified Code(s): N39.0 - Urinary tract infection, site not specified (3) Abdominal pain Status: Acute Assessment and plan: Likely secondary to C. diff. CT of the abdomen and pelvis was negative for acute intra-abdominal abnormality. Continue supportive care. Qualifiers: Abdominal location: generalized Qualified Code(s): R10.84 - Generalized abdominal pain (4) Hypokalemia Status: Acute Assessment and plan: Likely secondary to acute GI loss. Resolved. (5) Anemia Status: Acute Assessment and plan: No acute bleeding on exam. Workup and management per the primary team. Qualifiers: Anemia type: due to chronic kidney disease Chronic kidney disease stage: stage 3 (moderate) Qualified Code(s): N18.3 - Chronic kidney disease, stage 3 (moderate); D63.1 - Anemia in chronic kidney disease; D63.1 - Anemia in chronic kidney disease (6) Dehydration Status: Acute Assessment and plan: Secondary to GI loss. Improved. Management per the primary team. (7) Generalized weakness Status: Acute Assessment and plan: Secondary to dehydration. Improved. (8) CKD (chronic kidney disease) stage 3, GFR 30-59 ml/min Status: Chronic Infectious Disease HPI - Data of Consult Patient: new to practice Consult date: 09/25/17 Requesting Physician: Petey Diaz MD Primary Care Provider: Taylor Harding CNP Family Provider: Alan Feldman - Consult Narrative Reason for consult: UTI, C. diff History of present illness: Ms. Mancia is a 76 year old female past medical history of hypertension and diverticulitis. The patient was admitted to the hospital September 23 for abdominal pain, diarrhea, and urinary tract infection. We are consulted September 25 for antibiotic recommendations regarding urinary tract infection and C. difficile. Briefly, the patient's a 76-year-old female with past medical history as stated above. The patient was discharged from [place] on September 08 after she was hospitalized for diverticulitis. She was discharged home to complete a course of oral Cipro and Flagyl, which the patient states she finished last . She states on Thursday she began to have profuse diarrhea with any by mouth intake and was generally weak and very tired. She also reported some lower back pain with associated dysuria and urinary frequency. On arrival to the ER, the patient was afebrile and hemodynamically stable. Laboratory studies revealed a white blood cell count of 4.1. Renal function was within normal limits. A urinalysis was obtained that was positive for pyuria. Urine was sent for culture. A CT abdomen and pelvis was essentially negative. She was admitted to the hospital for IV fluid resuscitation. Since admission, the patient's white blood cell count is down to 3.3. Stool sample came back positive for C. difficile. Urine culture is growing out Citrobacter freundii. Currently, the patient is on no antibiotics. We've been asked to evaluate and make further recommendations. My exam today, the patient endorses a history as stated above. She denies any fevers or chills or rigors. She denies any headache or neck pain. She denies any chest pain, shortness of breath, or cough. She denied any nausea or vomiting , but states she did not eat much because every time she did she would have a large amount of diarrhea. She states she was stooling anywhere from 10-20 times per day and often spent the entire day and night in the bathroom. She states her stools were mucousy and watery and she had some associated left lower quadrant abdominal pain with her bowel movements. She denies any blood in the stool. She also reports some bilateral flank pain with dysuria and urinary frequency. She denies any pain in her joints or extremities. She denies any oral thrush or new skin lesions. The patient has been staying in [place] with her daughter. She does not work outside the home. She is not been exposed to any animals. She denies any recent travel. She does not smoke, drink alcohol, or use any illicit drugs. CC: Petey Diaz MD Past Med Surg Social Fam HX - Past Medical History Attestation: Yes The following information was validated with the patient. Source: patient, old records reviewed, nursing notes reviewed Medical history: hypertension, other (Diverticulitis) Psychiatric history: depression - Past Surgical History Surgical History: cholecystectomy, hysterectomy, other (Rectovaginal fistula repair), vascular surgery (LLE) - Social History Smoking Status: Never smoker Smokeless Tobacco Status: No Alcohol use: none Drug use: none Occupational status: unemployed Current living situation: Home, With Family Activity Level: Uses cane/walker Recent Out of Country Travel Within the Last 8 Weeks: No Exposure or Possible Exposure to Illness During Travel: No - Family History Mother Hx Family Cardiac Disorders: Yes Hx Family Respiratory Disorders: No Hx Family Cancer: No Hx Family GI Disorders: No Hx Family Endocrine Disorder: No Hx Family Neuromuscular Disorders: Yes Hx Family Neurologic Disorders: No Hx Family HEENT Disorders: No Hx Family Autoimmune Disorders: No Infectious Disease-CN:Meds Omeprazole [PriLOSEC] 20 mg PO DAILY #30 cap 09/08/17 [Rx] Ferrous Sulfate [Iron] 325 mg PO DAILY 09/23/17 [History] Hydrochlorothiazide [Microzide] 12.5 mg PO DAILY 09/23/17 [History] LORazepam [Ativan] 0.5 mg PO DAILY PRN 09/23/17 [History] Metoprolol [Lopressor] 50 mg PO BID 09/23/17 [History] Quinapril HCl [Accupril] 20 mg PO DAILY 09/23/17 [History] Tramadol HCl [Ultram] 50 mg PO Q6H PRN 09/23/17 [History] 3 Allergy/AdvReac Type Severity Reaction Status Date / Time sulfamethoxazole Allergy Hives Verified 09/23/17 16:04 [From Bactrim] trimethoprim [From Bactrim] Allergy Hives Verified 09/23/17 16:04 Exam - Constitutional Vitals: Temp Pulse Resp BP Pulse Ox 97.4 F L 84 16 164/62 94 09/25/17 10:42 09/25/17 10:42 09/25/17 10:42 09/25/17 10:42 09/25/17 10:42 General appearance: average body habitus, cooperative, no acute distress - Head Head exam: Present: atraumatic, normal inspection, normocephalic - Eye Eye exam: Present: EOMI, normal appearance, PERRL Pupils: Present: normal accommodation - ENT ENT exam: Present: mucous membranes moist - Neck Neck exam: Present: normal inspection - Respiratory Respiratory exam: Present: CTAB. Absent: rales, respiratory distress, rhonchi, wheezes - Cardiovascular Cardiovascular exam: Present: RRR, +S1, +S2 - GI/Abdominal GI/Abdominal exam: Present: normal bowel sounds, soft, tenderness (LLQ). Absent : distended - Extremities Exam Extremities exam: Present: pedal edema (1+ BLE). Absent: joint swelling, tenderness - Back Exam Back exam: Absent: CVA tenderness (L), CVA tenderness (R) - Neurological Exam Neurological exam: Present: alert, oriented X3, no focal deficits - Psychiatric Psychiatric exam: Present: normal affect, normal mood - Skin Skin exam: Present: dry, intact, normal color, warm Infectious Disease CN: Results - Labs CBC & Chem 7: 09/24/17 05:06 09/25/17 04:39 Serology: Serology 09/24/17 Range/Units 11:16 Stl C. diff Tox B Gene Positive (Negative) Consult Discharge Plan - Plan Referrals: Alan Feldman MD [Family Provider] - Taylor Harding CNP [Primary Care Provider] -
[2017-09-25] MEDS: Vancomycin Oral Soln 250 MG/5 ML UDC PO SCH ×3 (12:19→20:39)
--- NOTE | 2017-09-25 14:26 | Internal Med Progress Note ---
Date of Encounter: 09/25/17 Time of Encounter: 14:23 - Assessment and plan (1) C. difficile diarrhea Current Visit: Yes Status: Acute Assessment and plan: Noted that patient has a C. difficile PCR positive. Etiology: Likely recent use of antibiotics. Infectious disease on the board. Infectious disease recommended vancomycin 125 mg by mouth 4 times a day We will follow the recommendations from infectious disease. Patient needs prolonged course of antibiotics and may get benefit from oral antibiotics rather than intravenous antibiotics (2) Hypokalemia Current Visit: Yes Status: Acute Assessment and plan: Patient had a hypokalemia yesterday which is likely secondary to this C. difficile diarrhea. Potassium was replaced. Today patient's potassium is 4.8. We will monitor potassium closely. (3) Anemia Current Visit: Yes Status: Acute Assessment and plan: Stable anemia likely secondary to previous GI loss. Qualifiers: Anemia type: due to chronic kidney disease Chronic kidney disease stage: stage 3 (moderate) Qualified Code(s): N18.3 - Chronic kidney disease, stage 3 (moderate); D63.1 - Anemia in chronic kidney disease; D63.1 - Anemia in chronic kidney disease (4) Abdominal pain Current Visit: Yes Status: Acute Assessment and plan: Patient had abdominal pain likely secondary to C. difficile diarrhea Qualifiers: Abdominal location: generalized Qualified Code(s): R10.84 - Generalized abdominal pain (5) Generalized weakness Current Visit: Yes Status: Acute Assessment and plan: Likely secondary to the ongoing diarrhea (6) UTI (urinary tract infection) Current Visit: Yes Status: Acute Assessment and plan: Uncomplicated UTI secondary to Citrobacter Patient is on cefepime 2 g every 12 hours. Per ID: Patient needs at least 2 weeks of antibiotics. Qualifiers: Urinary tract infection type: site unspecified Hematuria presence: without hematuria Qualified Code(s): N39.0 - Urinary tract infection, site not specified - Subjective Interval history: Patient seen and examined. Chart reviewed Patient is comfortably lying in the bed. Patient claims that she still has ongoing diarrhea. Patient denies chest pain, shortness of breath, nausea, vomiting, abdominal pain - Constitutional Vitals: Temp Pulse Resp BP Pulse Ox 97.4 F L 84 16 164/62 94 09/25/17 10:42 09/25/17 10:42 09/25/17 10:42 09/25/17 10:42 09/25/17 10:42 General appearance: Present: A&O X 3, no acute distress - Head Head exam: Present: atraumatic, normocephalic - Eye Eye exam: Present: PERRL, conjuntiva pink, sclera anicteric Pupils: Present: PERRL - Neck Neck exam general surgery: Present: supple, trachea midline. Absent: lymphadenopathy - Respiratory Respiratory exam: Present: CTAB. Absent: accessory muscle use, rales, rhonchi, wheezes - Cardiovascular Cardiovascular exam: Present: RRR, +S1, +S2. Absent: diastolic murmur, gallop, rubs, systolic murmur - GI/Abdominal GI/Abdominal exam: Present: normal bowel sounds, soft, no peritoneal signs. Absent: distended, tenderness - Extremities Exam Extremities exam: Present: warm, radial pulses palpable and symmetrical. Absent : calf tenderness, cyanotic, pedal edema - Neurological Exam Neurological exam: Present: CN II-XII intact, oriented X3, no focal deficits. Absent: pronater drift, facial droop, speech deficit - Skin Skin exam: Present: dry, intact Internal Medicine: Result - Labs CBC & Chem 7: 09/24/17 05:06 09/25/17 04:39 Labs: BMP 09/25/17 04:39 Sodium 142 Potassium 4.8 H D Chloride 116 H Carbon Dioxide 22 BUN 8 Creatinine 0.81 Glucose 105 H Calcium 7.7 L Consult Discharge Plan - Plan Referrals: Alan Feldman MD [Family Provider] - Taylor Harding CNP [Primary Care Provider] -
[2017-09-25] MEDS ORDERED: Cefepime HCl 2,000 MG in D5% in Water (Mini-Bag+) 100 ML IVPB SCH (16:00)
--- NOTE | 2017-09-25 16:22 | Electrocardiograph Report ---
[place] [id number] Test Date: 2017-09-23 Pat Name: Delicia Mancia Department: 104 Room: [facility] Gender: F Clam Picker: EKP : [id number] Requested By: Vik Baker Order Number: [id number] Reading MD: Johnie Delcid Measurements Intervals [place] Rate: 64 P: -70 CT: 366 QRS: 33 QRSD: 102 T: 50 QT: 365 QTc: 374 Interpretive Statements SUPRAVENTRICULAR RHYTHM ARTIFACT LIMITS INTERPRETATION Electronically Signed On 09-25-2017 16:20:12 EST by Johnie Delcid
[2017-09-25] MEDS: Cefepime HCl 2,000 MG in Water for inj. (sterile) 20 ML IVP SCH (17:29)
[2017-09-25] MEDS: 0.9 % Sodium Chloride 1,000 ML IVC SCH (18:44)
[2017-09-26 00:17] LABS: Acinetobacter baumannii by PCR Not Detected (Not Detect); Candida albicans by PCR Not Detected (Not Detect); Candida glabrata by PCR Not Detected (Not Detect); Candida krusei by PCR Not Detected (Not Detect); Candida parapsilosis by PCR Not Detected (Not Detect); Candida tropicalis by PCR Not Detected (Not Detect); Enterococcus by PCR Not Detected (Not Detect); Escherichia coli by PCR Not Detected (Not Detect); Klebsiella oxytoca by PCR Not Detected (Not Detect); Klebsiella pneumoniae by PCR Not Detected (Not Detect); Pseudomonas aeruginosa by PCR Not Detected (Not Detect); Serratia marcescens by PCR Not Detected (Not Detect); Staphylococcus aureus by PCR Not Detected (Not Detect); Streptococcus agalactiae(B)PCR Not Detected (Not Detect); Streptococcus by PCR Not Detected (Not Detect); Streptococcus pneumoniae PCR Not Detected (Not Detect); Streptococcus pyogenes (A) PCR Not Detected (Not Detect); blaKPC Carbapenem-Resist Gene Not Detected (Not Detect); mecA Methicillin-Resist Gene ***DETECTED*** (Not Detect); vanA/B Vancomycin-Resist Genes Not Detected (Not Detect)
--- NOTE | 2017-09-26 00:29 | Event Note ---
Date of Encounter: 09/26/17 Time of Encounter: 00:28 1 out of 2 sets blood cx positive suspect contaminant ? Repeat 2 sets of blood cx and monitor closely
[2017-09-26 01:18] LABS: Basophils % 0.3 %; Eosinophils # 0.1 K/mcL (0.0-0.6); Eosinophils % 2.1 %; Hematocrit 28.9 % (35.3-44.9); Hemoglobin 9.3 g/dL (11.5-15.4); Immature Granulocytes % 0.5 % (0-4); Lymphocytes # 1.3 K/mcL (0.6-4.6); Lymphocytes % 35.1 %; Mean Corpuscular HGB Conc 32.2 g/dL (31.6-35.5); Mean Corpuscular Hemoglobin 32.9 pg (28.0-33.3); Mean Corpuscular Volume 102.1 fL (83.0-100.0); Mean Platelet Volume 12.3 fL (9.4-12.4); Monocytes # 0.4 K/mcL (0.0-1.3); Monocytes % 9.7 %; Platelet Count 164 K/mcL (140-400); Red Blood Count 2.83 M/mcL (3.82-4.97); Red Cell Distribution Width 14.8 % (11.5-14.5); Segmented Neutrophils % 52.3 %
[2017-09-26 01:30] LABS: Alanine Aminotransferase 9 Units/L (0-55); Albumin 2.2 g/dL (3.5-5.0); Albumin/Globulin Ratio 0.6 (1.1-2.2); Alkaline Phosphatase 64 Units/L (38-126); Aspartate Amino Transferase 8 Units/L (5-34); BUN/Creatinine Ratio 10 (6-26); Bilirubin,Total 0.3 mg/dL (0.2-1.2); Blood Urea Nitrogen 8 mg/dL (7-20); Calcium 7.7 mg/dL (8.6-10.8); Carbon Dioxide 18 mEq/L (19-29); Chloride 115 mEq/L (98-109); Globulin 3.5 g/dL (2.4-3.5); Glucose 109 mg/dL (70-99); Osmolality,Calculated 291 (280-300); Sodium 141 mEq/L (136-145); Total Protein 5.7 g/dL (6.0-8.3); eGFR For African Americans > 60 (> 60); eGFR For Non-African Americans > 60 (> 60)
[2017-09-26] MEDS: Cefepime HCl 2,000 MG in Water for inj. (sterile) 20 ML IVP SCH ×2 (04:02→17:40)
[2017-09-26] MEDS: *HR* Heparin 5,000 UNIT/ML VIAL SQ SCH ×2 (05:25→17:38)
[2017-09-26] MEDS: traMADol 50 MG TABLET PO PRN ×2 (05:50→21:08)
[2017-09-26] MEDS: Vancomycin Oral Soln 250 MG/5 ML UDC PO SCH ×4 (09:45→20:22)
[2017-09-26] MEDS: Lactobacillus 1 EACH CAP.SPRINK PO SCH ×2 (09:45→20:22)
[2017-09-26] MEDS: 0.9 % Sodium Chloride 1,000 ML IVC SCH (09:59)
--- NOTE | 2017-09-26 15:52 | Internal Med Progress Note ---
Date of Encounter: 09/26/17 Time of Encounter: 15:49 - Assessment and plan (1) Gram-positive bacteremia Current Visit: Yes Status: Acute Assessment and plan: Noted that patient's one blood culture positive for gram-positive bacteremia. We will start patient on IV vancomycin. Pharmacy to dose vancomycin. Repeat blood cultures ordered. If repeat blood cultures negative by end of 48 hours we will discontinue IV vancomycin (2) C. difficile diarrhea Current Visit: Yes Status: Acute Assessment and plan: Noted that patient has a C. difficile PCR positive. Etiology: Likely recent use of antibiotics. Infectious disease on the board. Infectious disease recommended vancomycin 125 mg by mouth 4 times a day We will follow the recommendations from infectious disease. Patient needs prolonged course of antibiotics and may get benefit from oral antibiotics rather than intravenous antibiotics 09/26/2017 Patient still is active diarrhea. We will continue oral vancomycin. Electrolytes normal. Close monitoring of the electrolytes/abdominal examinations (3) Hypokalemia Current Visit: Yes Status: Acute Assessment and plan: Patient had a hypokalemia yesterday which is likely secondary to this C. difficile diarrhea. Potassium was replaced. Today patient's potassium is 4.8. We will monitor potassium closely. (4) Anemia Current Visit: Yes Status: Acute Assessment and plan: Stable anemia likely secondary to previous GI loss. Qualifiers: Anemia type: due to chronic kidney disease Chronic kidney disease stage: stage 3 (moderate) Qualified Code(s): N18.3 - Chronic kidney disease, stage 3 (moderate); D63.1 - Anemia in chronic kidney disease; D63.1 - Anemia in chronic kidney disease (5) Abdominal pain Current Visit: Yes Status: Acute Assessment and plan: Patient had abdominal pain likely secondary to C. difficile diarrhea Qualifiers: Abdominal location: generalized Qualified Code(s): R10.84 - Generalized abdominal pain (6) Generalized weakness Current Visit: Yes Status: Acute Assessment and plan: Likely secondary to the ongoing diarrhea (7) UTI (urinary tract infection) Current Visit: Yes Status: Acute Assessment and plan: Uncomplicated UTI secondary to Citrobacter Patient is on cefepime 2 g every 12 hours. Per ID: Patient needs at least 2 weeks of antibiotics. Qualifiers: Urinary tract infection type: site unspecified Hematuria presence: without hematuria Qualified Code(s): N39.0 - Urinary tract infection, site not specified - Subjective Interval history: Patient seen and examined. Chart reviewed Patient is comfortably lying in the bed. Patient claims that she still has ongoing diarrhea. Patient denies chest pain, shortness of breath, nausea, vomiting, abdominal pain 09/26/2017 Patient seen and examined. chart reviewed. Patient is comfortably lying in the bed. Patient still has a ongoing diarrhea. - Constitutional Vitals: Temp Pulse Resp BP Pulse Ox 98.0 F 68 14 158/73 95 09/26/17 11:59 09/26/17 11:59 09/26/17 11:59 09/26/17 11:59 09/26/17 11:59 General appearance: Present: A&O X 3, no acute distress - Head Head exam: Present: atraumatic, normocephalic - Eye Eye exam: Present: PERRL, conjuntiva pink, sclera anicteric Pupils: Present: PERRL - Neck Neck exam general surgery: Present: supple, trachea midline. Absent: lymphadenopathy - Respiratory Respiratory exam: Present: CTAB. Absent: accessory muscle use, rales, rhonchi, wheezes - Cardiovascular Cardiovascular exam: Present: RRR, +S1, +S2. Absent: diastolic murmur, gallop, rubs, systolic murmur - GI/Abdominal GI/Abdominal exam: Present: normal bowel sounds, soft, no peritoneal signs. Absent: distended, tenderness - Extremities Exam Extremities exam: Present: warm, radial pulses palpable and symmetrical. Absent : calf tenderness, cyanotic, pedal edema - Neurological Exam Neurological exam: Present: CN II-XII intact, oriented X3, no focal deficits. Absent: pronater drift, facial droop, speech deficit - Skin Skin exam: Present: dry, intact Internal Medicine: Result - Labs CBC & Chem 7: 09/26/17 01:08 09/26/17 01:08 Labs: Short CBC 09/26/17 Range/Units 01:08 WBC 3.8 L (4.3-11.1) K/mcL Hgb 9.3 L (11.5-15.4) g/dL Hct 28.9 L (35.3-44.9) % Plt Count 164 (140-400) K/mcL Neutrophils # 2.0 (1.6-8.9) K/mcL BMP 09/26/17 01:08 Sodium 141 Potassium 4.0 Chloride 115 H Carbon Dioxide 18 L BUN 8 Creatinine 0.79 Glucose 109 H Calcium 7.7 L Liver Function 09/26/17 Range/Units 01:08 Total Bilirubin 0.3 (0.2-1.2) mg/dL AST 8 (5-34) Units/L ALT 9 (0-55) Units/L Alkaline Phosphatase 64 (38-126) Units/L Albumin 2.2 L (3.5-5.0) g/dL Consult Discharge Plan - Plan Referrals: Alan Feldman MD [Family Provider] - Taylor Harding CNP [Primary Care Provider] -
[2017-09-26] MEDS ORDERED: Vancomycin 1,250 MG in D5% in Water 250 ML IVPB ONE (16:00)
[2017-09-27] MEDS: 0.9 % Sodium Chloride 1,000 ML IVC SCH (02:14)
[2017-09-27] MEDS: Cefepime HCl 2,000 MG in Water for inj. (sterile) 20 ML IVP SCH ×2 (03:47→15:44)
[2017-09-27 03:56] LABS: Basophils % 0.4 %; Eosinophils # 0.1 K/mcL (0.0-0.6); Eosinophils % 2.4 %; Hematocrit 32.5 % (35.3-44.9); Hemoglobin 10.4 g/dL (11.5-15.4); Immature Granulocytes % 0.7 % (0-4); Lymphocytes # 1.6 K/mcL (0.6-4.6); Lymphocytes % 35.2 %; Mean Corpuscular Hemoglobin 32.3 pg (28.0-33.3); Mean Corpuscular Volume 100.9 fL (83.0-100.0); Mean Platelet Volume 12.6 fL (9.4-12.4); Monocytes # 0.6 K/mcL (0.0-1.3); Monocytes % 12.4 %; Neutrophils # 2.3 K/mcL (1.6-8.9); Platelet Count 185 K/mcL (140-400); Red Blood Count 3.22 M/mcL (3.82-4.97); Red Cell Distribution Width 14.6 % (11.5-14.5); Segmented Neutrophils % 48.9 %
[2017-09-27 04:14] LABS: Alanine Aminotransferase 10 Units/L (0-55); Albumin 2.4 g/dL (3.5-5.0); Albumin/Globulin Ratio 0.6 (1.1-2.2); Alkaline Phosphatase 72 Units/L (38-126); Aspartate Amino Transferase 12 Units/L (5-34); BUN/Creatinine Ratio 10 (6-26); Bilirubin,Total 0.5 mg/dL (0.2-1.2); Blood Urea Nitrogen 7 mg/dL (7-20); Calcium 8.2 mg/dL (8.6-10.8); Carbon Dioxide 22 mEq/L (19-29); Chloride 110 mEq/L (98-109); Globulin 4.1 g/dL (2.4-3.5); Glucose 99 mg/dL (70-99); Osmolality,Calculated 288 (280-300); Potassium 3.8 mEq/L (3.5-4.5); Sodium 140 mEq/L (136-145); Total Protein 6.5 g/dL (6.0-8.3); eGFR For African Americans > 60 (> 60); eGFR For Non-African Americans > 60 (> 60)
[2017-09-27] MEDS: *HR* Heparin 5,000 UNIT/ML VIAL SQ SCH ×2 (05:00→15:44)
[2017-09-27] MEDS: Vancomycin Oral Soln 250 MG/5 ML UDC PO SCH ×3 (07:53→18:55)
[2017-09-27] MEDS: Lactobacillus 1 EACH CAP.SPRINK PO SCH (07:54)
[2017-09-27] MEDS: *HR* LORazepam 0.5 MG TABLET PO PRN (07:54)
[2017-09-27] MEDS ORDERED: *HR* LORazepam 2 MG/ML VIAL IVP ONE ×2 (10:11→13:49)
[2017-09-27] MEDS ORDERED: *HR* LORazepam 2 MG/ML VIAL IM STA (10:40)
[2017-09-27] MEDS ORDERED: Water for inj. (sterile) 10 ML IV ONE (13:54)
[2017-09-27] MEDS ORDERED: Vancomycin 1,000 MG in D5% in Water 250 ML IVPB SCH (16:00)
[2017-09-27] MEDS ORDERED: Haloperidol Lactate 5 MG/ML VIAL IVP ONE (16:36)
--- NOTE | 2017-09-27 16:53 | Internal Med Progress Note ---
Date of Encounter: 09/27/17 Time of Encounter: 16:48 - Assessment and plan (1) Pulmonary embolism Current Visit: Yes Status: Acute Assessment and plan: In view of new onset of confusion, it was decided to do a thrasher CT scan of this agent. CT head: No acute abnormality noted. CTA chest: I received a call from radiology, I was informed that patient has a nonocclusive right upper lobe pulmonary embolism. CT abdomen and pelvis: Possibility of a sinus tract noted along with the gaseous changes. Please note that this is not a new finding. This finding was present in 2011 CT abdomen and pelvis as per radiology. I personally discussed this case with the radiology Dr. Maloney. Pulmonary embolism might be a reason for her acute onset confusion Plan: We will start patient on Xarelto 15 mg BID. We will monitor hemoglobin/hematocrit. We will transfer this patient to the medical unit Qualifiers: Pulmonary embolism type: other Chronicity: acute Acute cor pulmonale presence: without acute cor pulmonale Qualified Code(s): I26.99 - Other pulmonary embolism without acute cor pulmonale (2) Gram-positive bacteremia Current Visit: Yes Status: Acute Assessment and plan: Noted that patient's one blood culture positive for gram-positive bacteremia. We will start patient on IV vancomycin. Pharmacy to dose vancomycin. Repeat blood cultures ordered. If repeat blood cultures negative by end of 48 hours we will discontinue IV vancomycin 09/27/2017 Blood culture drawn this morning. Blood culture negative so far. Day 2 of IV vancomycin. If by tomorrow blood cultures are negative then discontinue vancomycin. (3) C. difficile diarrhea Current Visit: Yes Status: Acute Assessment and plan: Noted that patient has a C. difficile PCR positive. Etiology: Likely recent use of antibiotics. Infectious disease on the board. Infectious disease recommended vancomycin 125 mg by mouth 4 times a day We will follow the recommendations from infectious disease. Patient needs prolonged course of antibiotics and may get benefit from oral antibiotics rather than intravenous antibiotics 09/26/2017 Patient still is active diarrhea. We will continue oral vancomycin. Electrolytes normal. Close monitoring of the electrolytes/abdominal examinations 09/27/2017 Patient still has a ongoing diarrhea. We will continue oral vancomycin. (4) Hypokalemia Current Visit: Yes Status: Acute Assessment and plan: Patient had a hypokalemia yesterday which is likely secondary to this C. difficile diarrhea. Potassium was replaced. Today patient's potassium is 4.8. We will monitor potassium closely. 09/27/2017 Hypokalemia resolved. Today's potassium is 3.8. (5) Anemia Current Visit: Yes Status: Acute Assessment and plan: Stable anemia likely secondary to previous GI loss. Qualifiers: Anemia type: due to chronic kidney disease Chronic kidney disease stage: stage 3 (moderate) Qualified Code(s): N18.3 - Chronic kidney disease, stage 3 (moderate); D63.1 - Anemia in chronic kidney disease; D63.1 - Anemia in chronic kidney disease (6) Abdominal pain Current Visit: Yes Status: Acute Assessment and plan: Patient had abdominal pain likely secondary to C. difficile diarrhea Qualifiers: Abdominal location: generalized Qualified Code(s): R10.84 - Generalized abdominal pain (7) Generalized weakness Current Visit: Yes Status: Acute Assessment and plan: Likely secondary to the ongoing diarrhea (8) UTI (urinary tract infection) Current Visit: Yes Status: Acute Assessment and plan: Uncomplicated UTI secondary to Citrobacter Patient is on cefepime 2 g every 12 hours. Per ID: Patient needs at least 2 weeks of antibiotics. Qualifiers: Urinary tract infection type: site unspecified Hematuria presence: without hematuria Qualified Code(s): N39.0 - Urinary tract infection, site not specified - Subjective Interval history: Patient seen and examined. Chart reviewed Patient is comfortably lying in the bed. Patient claims that she still has ongoing diarrhea. Patient denies chest pain, shortness of breath, nausea, vomiting, abdominal pain 09/26/2017 Patient seen and examined. chart reviewed. Patient is comfortably lying in the bed. Patient still has a ongoing diarrhea. 09/27/2017 Patient seen and examined. Chart reviewed. Patient is slightly confused. Patient denies any abdominal pain We will get a workup done for this new onset of confusion. - Constitutional Vitals: Temp Pulse Resp BP Pulse Ox 98.0 F 85 18 127/70 96 09/27/17 06:10 09/27/17 06:10 09/27/17 06:10 09/27/17 06:10 09/27/17 06:10 General appearance: Present: A&O X 3, no acute distress - Head Head exam: Present: atraumatic, normocephalic - Eye Eye exam: Present: PERRL, conjuntiva pink, sclera anicteric Pupils: Present: PERRL - Neck Neck exam general surgery: Present: supple, trachea midline. Absent: lymphadenopathy - Respiratory Respiratory exam: Present: CTAB. Absent: accessory muscle use, rales, rhonchi, wheezes - Cardiovascular Cardiovascular exam: Present: RRR, +S1, +S2. Absent: diastolic murmur, gallop, rubs, systolic murmur - GI/Abdominal GI/Abdominal exam: Present: normal bowel sounds, soft, no peritoneal signs. Absent: distended, tenderness - Extremities Exam Extremities exam: Present: warm, radial pulses palpable and symmetrical. Absent : calf tenderness, cyanotic, pedal edema - Neurological Exam Neurological exam: Present: CN II-XII intact, oriented X3, no focal deficits. Absent: pronater drift, facial droop, speech deficit - Skin Skin exam: Present: dry, intact Internal Medicine: Result - Labs CBC & Chem 7: 09/27/17 03:18 09/27/17 03:18 Labs: Short CBC 09/27/17 Range/Units 03:18 WBC 4.6 (4.3-11.1) K/mcL Hgb 10.4 L (11.5-15.4) g/dL Hct 32.5 L (35.3-44.9) % Plt Count 185 (140-400) K/mcL Neutrophils # 2.3 (1.6-8.9) K/mcL BMP 09/27/17 03:18 Sodium 140 Potassium 3.8 Chloride 110 H Carbon Dioxide 22 BUN 7 Creatinine 0.73 Glucose 99 Calcium 8.2 L Liver Function 09/27/17 Range/Units 03:18 Total Bilirubin 0.5 (0.2-1.2) mg/dL AST 12 (5-34) Units/L ALT 10 (0-55) Units/L Alkaline Phosphatase 72 (38-126) Units/L Albumin 2.4 L (3.5-5.0) g/dL - Impressions Impressions Abdomen/Pelvis CT 09/27/17 13:30 IMPRESSION: Left lower pelvic fluid and gas containing structure contiguous with the left pelvic sigmoid colon abutting the upper vagina/ cervix and left posterolateral urinary bladder wall which is thickened. Correlation for acute and/or chronic diverticulitis with the possibility of associated fistulous or sinus tract. D/ / Amara Lau Cha, MD / Amara aLu Cha, MD Interpreting Provider: Amara Lau Cha, MD Chest CTA 09/27/17 13:30 IMPRESSION: 1. Acute nonocclusive right upper lobe anterior segmental pulmonary emboli. 2. Cardiomegaly with RV/LV ratio of 1.2. This could relate to primary cardiac pathology versus right heart strain secondary to PE. 3. Bilateral pleural effusions and lower lobe atelectasis. 4. Nonspecific bilateral patchy lower lobe opacities which may represent atelectasis or possible superimposed pneumonia. Critical results were called by Dr. Stuart Smith MD to [facility] Donald Topete on 09/27/2017 at 16:36. D/ / 09/27/2017 16:43:22 Stuart Smith MD / [facility] [place] Interpreting Provider: Stuart Smith MD Head CT 09/27/17 13:30 IMPRESSION: No acute intracranial abnormality. D/ / Amara Lau Cha, MD / Amara Lau Cha, MD Interpreting Provider: Amara Lau Cha, MD Consult Discharge Plan - Plan Referrals: Alan Feldman MD [Family Provider] - Taylor Harding CNP [Primary Care Provider] -
[2017-09-28] MEDS: traMADol 50 MG TABLET PO PRN ×2 (00:36→21:08)
[2017-09-28] MEDS: *HR* LORazepam 0.5 MG TABLET PO PRN (00:36)
[2017-09-28] MEDS: *HR* Rivaroxaban 15 MG TABLET PO SCH ×3 (00:36→21:09)
[2017-09-28] MEDS: Lactobacillus 1 EACH CAP.SPRINK PO SCH ×3 (00:37→21:08)
[2017-09-28] MEDS: Vancomycin Oral Soln 250 MG/5 ML UDC PO SCH ×5 (00:45→21:09)
[2017-09-28 05:02] LABS: Basophils % 0.5 %; Eosinophils # 0.1 K/mcL (0.0-0.6); Eosinophils % 1.6 %; Hematocrit 30.6 % (35.3-44.9); Hemoglobin 9.6 g/dL (11.5-15.4); Immature Granulocytes % 0.8 % (0-4); Lymphocytes % 26.2 %; Mean Corpuscular HGB Conc 31.4 g/dL (31.6-35.5); Mean Corpuscular Hemoglobin 31.6 pg (28.0-33.3); Mean Corpuscular Volume 100.7 fL (83.0-100.0); Mean Platelet Volume 12.6 fL (9.4-12.4); Monocytes # 0.5 K/mcL (0.0-1.3); Monocytes % 12.7 %; Neutrophils # 2.2 K/mcL (1.6-8.9); Platelet Count 160 K/mcL (140-400); Red Blood Count 3.04 M/mcL (3.82-4.97); Red Cell Distribution Width 14.6 % (11.5-14.5); Segmented Neutrophils % 58.2 %
[2017-09-28 05:14] LABS: Alanine Aminotransferase 11 Units/L (0-55); Albumin 2.2 g/dL (3.5-5.0); Albumin/Globulin Ratio 0.6 (1.1-2.2); Alkaline Phosphatase 67 Units/L (38-126); Aspartate Amino Transferase 15 Units/L (5-34); BUN/Creatinine Ratio 9 (6-26); Bilirubin,Total 0.5 mg/dL (0.2-1.2); Blood Urea Nitrogen 7 mg/dL (7-20); Calcium 8.4 mg/dL (8.6-10.8); Carbon Dioxide 28 mEq/L (19-29); Chloride 111 mEq/L (98-109); Globulin 3.7 g/dL (2.4-3.5); Glucose 93 mg/dL (70-99); Osmolality,Calculated 288 (280-300); Potassium 3.6 mEq/L (3.5-4.5); Sodium 140 mEq/L (136-145); Total Protein 5.9 g/dL (6.0-8.3); eGFR For African Americans > 60 (> 60); eGFR For Non-African Americans > 60 (> 60)
[2017-09-28] MEDS ORDERED: Aminoglycoside Consult 1 EACH MC ONE (07:17)
[2017-09-28] MEDS: Cefepime HCl 2,000 MG in Water for inj. (sterile) 20 ML IVP SCH ×2 (09:44→16:57)
--- NOTE | 2017-09-28 14:11 | Internal Med Progress Note ---
<Chalo Mariscal - Last Filed: 09/28/17 15:14> Date of Encounter: 09/28/17 Time of Encounter: 14:09 - Assessment and plan (1) Pulmonary embolism Current Visit: Yes Status: Acute Assessment and plan: Chest CTA obtained due to AMS CTA showed acute nonocclusive right upper lobe anterior segmental pulmonary emboli, cardiomegaly, right heart strain secdonary to PE, nonspecific bilateral patchy lower lobe opacities which may represent atalectasis or possible superimposed pneumonia. Plan: continue Xarelto 15 mg BID. Qualifiers: Pulmonary embolism type: other Chronicity: acute Acute cor pulmonale presence: without acute cor pulmonale Qualified Code(s): I26.99 - Other pulmonary embolism without acute cor pulmonale (2) Gram-positive bacteremia Current Visit: Yes Status: Acute Assessment and plan: prior blood culture: 10/27 postive for staph hominis. like contaminant. repeat blood culture: no growth to date. Plan: IV vanc discontinued today (3) C. difficile diarrhea Current Visit: Yes Status: Acute Assessment and plan: Noted that patient has a C. difficile PCR positive. likely secondary to recent use of ABX Appreciate ID recs Plan: still having diarrhea. continue oral vanc (4) UTI (urinary tract infection) Current Visit: Yes Status: Acute Assessment and plan: Urine culture positive for Citrobacter Plan: cefepime 2 g BID Per ID: Patient needs at least 2 weeks of antibiotics. Qualifiers: Urinary tract infection type: site unspecified Hematuria presence: without hematuria Qualified Code(s): N39.0 - Urinary tract infection, site not specified (5) Hypokalemia Current Visit: Yes Status: Acute Assessment and plan: secondary to this C. difficile diarrhea. continue to monitor and replete as needed. (6) Anemia Current Visit: Yes Status: Acute Assessment and plan: Stable. continue home ferrous sulfate Qualifiers: Anemia type: due to chronic kidney disease Chronic kidney disease stage: stage 3 (moderate) Qualified Code(s): N18.3 - Chronic kidney disease, stage 3 (moderate); D63.1 - Anemia in chronic kidney disease; D63.1 - Anemia in chronic kidney disease (7) Abdominal pain Current Visit: Yes Status: Acute Assessment and plan: continue to monitor. Qualifiers: Abdominal location: generalized Qualified Code(s): R10.84 - Generalized abdominal pain (8) Generalized weakness Current Visit: Yes Status: Acute Assessment and plan: Likely secondary to the ongoing diarrhea PT/OT (9) DVT prophylaxis Current Visit: Yes Status: Acute Assessment and plan: Xarelto - Subjective Interval history: 76F evaluated at bedside. patient denies nausea, vomiting, fever. she admits to chills. denies shortness of breath. she states she had two episodes of diarrhea today. - Constitutional Vitals: Temp Pulse Resp BP Pulse Ox 98.3 F 74 18 131/68 96 09/28/17 11:32 09/28/17 11:32 09/28/17 11:32 09/28/17 11:32 09/28/17 11:32 General appearance: Present: A&O X 3, pleasant, no acute distress, answers questions appropriately - Head Head exam: Present: atraumatic, normocephalic - Neck Neck exam general surgery: Present: supple, trachea midline - Respiratory Respiratory exam: Present: decreased breath sounds - Cardiovascular Cardiovascular exam: Present: RRR, +S1, +S2 - GI/Abdominal GI/Abdominal exam: Present: normal bowel sounds, soft. Absent: distended, tenderness - Extremities Exam Extremities exam: Absent: cyanotic, pedal edema - Neurological Exam Neurological exam: Present: alert, oriented X3, no focal deficits - Psychiatric Psychiatric exam: Present: normal affect, normal mood - Skin Skin exam: Present: normal color. Absent: cyanosis Internal Medicine: Result - Labs CBC & Chem 7: 09/28/17 04:11 09/28/17 04:11 Labs: Short CBC 09/28/17 Range/Units 04:11 WBC 3.8 L (4.3-11.1) K/mcL Hgb 9.6 L (11.5-15.4) g/dL Hct 30.6 L (35.3-44.9) % Plt Count 160 (140-400) K/mcL Neutrophils # 2.2 (1.6-8.9) K/mcL BMP 09/28/17 04:11 Sodium 140 Potassium 3.6 Chloride 111 H Carbon Dioxide 28 BUN 7 Creatinine 0.74 Glucose 93 Calcium 8.4 L Liver Function 09/28/17 Range/Units 04:11 Total Bilirubin 0.5 (0.2-1.2) mg/dL AST 15 (5-34) Units/L ALT 11 (0-55) Units/L Alkaline Phosphatase 67 (38-126) Units/L Albumin 2.2 L (3.5-5.0) g/dL - Impressions Impressions Abdomen/Pelvis CT 09/27/17 13:30 IMPRESSION: Left lower pelvic fluid and gas containing structure contiguous with the left pelvic sigmoid colon abutting the upper vagina/ cervix and left posterolateral urinary bladder wall which is thickened. Correlation for acute and/or chronic diverticulitis with the possibility of associated fistulous or sinus tract. D/ / Amara Lau Cha, MD / Amara Lau Cha, MD Interpreting Provider: Amara Lau Cha, MD Chest CTA 09/27/17 13:30 IMPRESSION: 1. Acute nonocclusive right upper lobe anterior segmental pulmonary emboli. 2. Cardiomegaly with RV/LV ratio of 1.2. This could relate to primary cardiac pathology versus right heart strain secondary to PE. 3. Bilateral pleural effusions and lower lobe atelectasis. 4. Nonspecific bilateral patchy lower lobe opacities which may represent atelectasis or possible superimposed pneumonia. Critical results were called by Dr. Stuart Smith MD to Elias Donald [place] on 09/27/2017 at 16:36. D/ / 09/27/2017 16:43:22 Stuart Smith MD / helen Interpreting Provider: Stuart Smith MD Head CT 09/27/17 13:30 IMPRESSION: No acute intracranial abnormality. D/ / Amara Lau Cha, MD / Amara Lau Cha, MD Interpreting Provider: Amara Lau Cha, MD Consult Discharge Plan - Plan Referrals: Alan Feldman MD [Family Provider] - Taylor Harding CNP [Primary Care Provider] - <Joey Swenson - Last Filed: 09/28/17 17:20> Date of Encounter: 09/28/17 - Assessment and plan (1) Hypokalemia Current Visit: Yes Status: Acute (2) HTN (hypertension) Current Visit: Yes Status: Chronic Qualifiers: Hypertension type: essential hypertension Qualified Code(s): I10 - Essential (primary) hypertension (3) Sigmoid diverticulitis Current Visit: Yes Status: Acute (4) Abdominal pain Current Visit: Yes Status: Acute Qualifiers: Abdominal location: generalized Qualified Code(s): R10.84 - Generalized abdominal pain (5) Diarrhea Current Visit: Yes Status: Acute Qualifiers: Diarrhea type: unspecified type Qualified Code(s): R19.7 - Diarrhea, unspecified (6) Dehydration Current Visit: Yes Status: Acute (7) Generalized weakness Current Visit: Yes Status: Acute (8) UTI (urinary tract infection) Current Visit: Yes Status: Acute Qualifiers: Urinary tract infection type: site unspecified Hematuria presence: without hematuria Qualified Code(s): N39.0 - Urinary tract infection, site not specified - Constitutional Vitals: Temp Pulse Resp BP Pulse Ox 98.4 F 76 14 132/66 92 09/28/17 14:32 09/28/17 14:32 09/28/17 14:32 09/28/17 14:32 09/28/17 14:32 Internal Medicine: Result - Labs CBC & Chem 7: 09/28/17 04:11 09/28/17 04:11 Labs: Short CBC 09/28/17 Range/Units 04:11 WBC 3.8 L (4.3-11.1) K/mcL Hgb 9.6 L (11.5-15.4) g/dL Hct 30.6 L (35.3-44.9) % Plt Count 160 (140-400) K/mcL Neutrophils # 2.2 (1.6-8.9) K/mcL BMP 09/28/17 04:11 Sodium 140 Potassium 3.6 Chloride 111 H Carbon Dioxide 28 BUN 7 Creatinine 0.74 Glucose 93 Calcium 8.4 L Liver Function 09/28/17 Range/Units 04:11 Total Bilirubin 0.5 (0.2-1.2) mg/dL AST 15 (5-34) Units/L ALT 11 (0-55) Units/L Alkaline Phosphatase 67 (38-126) Units/L Albumin 2.2 L (3.5-5.0) g/dL - Impressions Impressions Chest CTA 09/27/17 13:30 IMPRESSION: 1. Acute nonocclusive right upper lobe anterior segmental pulmonary emboli. 2. Cardiomegaly with RV/LV ratio of 1.2. This could relate to primary cardiac pathology versus right heart strain secondary to PE. 3. Bilateral pleural effusions and lower lobe atelectasis. 4. Nonspecific bilateral patchy lower lobe opacities which may represent atelectasis or possible superimposed pneumonia. Critical results were called by Dr. Stuart Smith MD to Elias Topete on 09/27/2017 at 16:36. D/ / 09/27/2017 16:43:22 Stuart Smith MD / helen Interpreting Provider: Stuart Smith MD - Attending Attestation I examined this patient and my medical decision-making was reviewed with the Resident Physician. I agree with the documented findings, disposition and treatment plan as described except to the extent set forth below.
[2017-09-28] MEDS: 0.9 % Sodium Chloride 1,000 ML IVC SCH ×3 (14:24→23:51)
--- NOTE | 2017-09-28 15:58 | Infectious Disease Progress No ---
Date of Encounter: 09/28/17 Time of Encounter: 15:56 - Assessment and Plan (1) Gram-positive bacteremia Current Visit: Yes Status: Acute Blood cultures drawn 09/23/17 were positive 1/2 sets for CONS. Repeat blood cultures drawn 09/26/17 x 4 sets are NGTD. Likely a contaminant. Treated with three days of IV Vancomycin. Discontinue IV Vancomycin. (2) C. difficile diarrhea Current Visit: Yes Status: Acute Likely secondary to recent antibiotic use. C. diff PCR positive. Mild, uncomplicated. Continue Vancomycin 125mg PO QID. Given that the patient also has a UTI and will require antibiotics, she will likely benefit from a prolonged course of PO antibiotic. Continue C. diff contact precautions. Duration of treatment depends on the clinical picture. Continue supportive care. (3) UTI (urinary tract infection) Current Visit: Yes Status: Acute Causative organism Citrobacter freundii. Uncomplicated. Continue Cefepime 2 grams IV Q12H. Duration of treatment depends on the clinical picture, but will likely transition to PO Fosfomycin when ready for discharge to complete the course of treatment. Monitor renal function and dose-adjust antibiotics. Qualifiers: Urinary tract infection type: site unspecified Hematuria presence: without hematuria Qualified Code(s): N39.0 - Urinary tract infection, site not specified (4) Pulmonary embolism Current Visit: Yes Status: Acute CT of the chest showed a non-occlusive RUL anterior segmental pulmonary emboli. Etiology unclear. Management per the primary team. Qualifiers: Pulmonary embolism type: other Chronicity: acute Acute cor pulmonale presence: without acute cor pulmonale Qualified Code(s): I26.99 - Other pulmonary embolism without acute cor pulmonale (5) Acute encephalopathy Current Visit: Yes Status: Acute Likely secondary to hypoxia and pulmonary emboli. CT head negative. Appears improved. Continue to monitor closely. (6) Abdominal pain Current Visit: Yes Status: Acute Likely secondary to C. diff. CT of the abdomen and pelvis was negative for acute intra-abdominal abnormality. Continue supportive care. Resolved. Qualifiers: Abdominal location: generalized Qualified Code(s): R10.84 - Generalized abdominal pain (7) Hypokalemia Current Visit: Yes Status: Acute (8) Anemia Current Visit: Yes Status: Acute Hgb stable. No acute bleeding on exam. Workup and management per the primary team. Qualifiers: Anemia type: due to chronic kidney disease Chronic kidney disease stage: stage 3 (moderate) Qualified Code(s): N18.3 - Chronic kidney disease, stage 3 (moderate); D63.1 - Anemia in chronic kidney disease; D63.1 - Anemia in chronic kidney disease (9) Dehydration Current Visit: Yes Status: Acute Secondary to GI loss. Improved. Management per the primary team. (10) Generalized weakness Current Visit: Yes Status: Acute Secondary to dehydration. Improved. (11) CKD (chronic kidney disease) stage 3, GFR 30-59 ml/min Current Visit: No Status: Chronic - Subjective Interval history: He should seen examined. Weekend notes reviewed. Acute events noted. Patient resting quietly in bed. States she has to get up to the bedside commode. Denies any fevers or chills or rigors. Denies any chest pain, shortness of breath, or cough. Denies any nausea or vomiting. She states her appetite is okay. States the diarrhea is improving. Reports minimal dysuria. Reports upper back pain, but denies flank pain. Denies pain in her extremities. Denies oral thrush or new skin lesions. Infect Dis PN-Objective Data - Labs CBC & Chem 7: 09/28/17 04:11 09/28/17 04:11 Labs: Laboratory Results - last 24 hr 09/28/17 09/28/17 04:11 04:11 WBC 3.8 L RBC 3.04 L Hgb 9.6 L Hct 30.6 L MCV 100.7 H MCH 31.6 MCHC 31.4 L RDW 14.6 H Plt Count 160 MPV 12.6 H Immature Gran % 0.8 Seg Neutrophils % 58.2 Lymphocytes % 26.2 Monocytes % 12.7 Eosinophils % 1.6 Basophils % 0.5 Neutrophils # 2.2 Lymphocytes # 1.0 Monocytes # 0.5 Eosinophils # 0.1 Basophils # 0.0 Sodium 140 Potassium 3.6 Chloride 111 H Carbon Dioxide 28 BUN 7 Creatinine 0.74 Est GFR ( Amer) > 60 Est GFR (Non-Af Amer) > 60 BUN/Creatinine Ratio 9 Glucose 93 Calculated Osmolality 288 Calcium 8.4 L Total Bilirubin 0.5 AST 15 ALT 11 Alkaline Phosphatase 67 Serum Total Protein 5.9 L Albumin 2.2 L Globulin 3.7 H Albumin/Globulin Ratio 0.6 L Cultures: Cultures 09/26/17 16:03 Blood Culture - Preliminary Peripheral Venipuncture No growth. 09/26/17 16:03 Blood Culture - Preliminary Peripheral Venipuncture No growth. 09/26/17 01:08 Blood Culture - Preliminary Peripheral Venipuncture No growth. 09/26/17 01:08 Blood Culture - Preliminary Peripheral Venipuncture No growth. Serology 09/24/17 Range/Units 11:16 Stl C. diff Tox B Gene Positive (Negative) - Impressions Impressions Abdomen/Pelvis CT 09/27/17 13:30 IMPRESSION: Left lower pelvic fluid and gas containing structure contiguous with the left pelvic sigmoid colon abutting the upper vagina/ cervix and left posterolateral urinary bladder wall which is thickened. Correlation for acute and/or chronic diverticulitis with the possibility of associated fistulous or sinus tract. D/ / Amara Lau Cha, MD / Amara Lau Cha, MD Interpreting Provider: Amara Lau Cha, MD Chest CTA 09/27/17 13:30 IMPRESSION: 1. Acute nonocclusive right upper lobe anterior segmental pulmonary emboli. 2. Cardiomegaly with RV/LV ratio of 1.2. This could relate to primary cardiac pathology versus right heart strain secondary to PE. 3. Bilateral pleural effusions and lower lobe atelectasis. 4. Nonspecific bilateral patchy lower lobe opacities which may represent atelectasis or possible superimposed pneumonia. Critical results were called by Dr. Stuart Smith MD to Elias Topete on 09/27/2017 at 16:36. D/ / 09/27/2017 16:43:22 Stuart Smith MD / helen Interpreting Provider: Stuart Smith MD Head CT 09/27/17 13:30 IMPRESSION: No acute intracranial abnormality. D/ / Amara Lau Cha, MD / Amara Lau Cha, MD Interpreting Provider: Amara Lau Cha, MD Exam - Constitutional Vitals: Temp Pulse Resp BP Pulse Ox 98.4 F 76 14 132/66 92 09/28/17 14:32 09/28/17 14:32 09/28/17 14:32 09/28/17 14:32 09/28/17 14:32 General appearance: average body habitus, cooperative, no acute distress - Head Head exam: Present: atraumatic, normal inspection, normocephalic - Eye Eye exam: Present: EOMI, normal appearance, PERRL Pupils: Present: normal accommodation - ENT ENT exam: Present: mucous membranes moist - Neck Neck exam: Present: normal inspection - Respiratory Respiratory exam: Present: CTAB. Absent: rales, respiratory distress, rhonchi, wheezes - Cardiovascular Cardiovascular exam: Present: RRR, +S1, +S2 - GI/Abdominal GI/Abdominal exam: Present: normal bowel sounds, soft. Absent: distended, tenderness - Extremities Exam Extremities exam: Present: pedal edema (1+ bilateral lower extremities). Absent : joint swelling, tenderness - Back Exam Back exam: Absent: CVA tenderness (L), CVA tenderness (R) - Neurological Exam Neurological exam: Present: alert, oriented X3, no focal deficits - Psychiatric Psychiatric exam: Present: normal affect, normal mood - Skin Skin exam: Present: dry, intact, normal color, warm Consult Discharge Plan - Plan Referrals: Alan Feldman MD [Family Provider] - Taylor Harding CNP [Primary Care Provider] -
[2017-09-28] MEDS: 0.9 % Sodium Chloride w KCl 40 MEQ/1,000 ML MLS IVC SCH (19:20)
[2017-09-29] MEDS: Cefepime HCl 2,000 MG in Water for inj. (sterile) 20 ML IVP SCH ×2 (06:11→17:17)
[2017-09-29] MEDS: 0.9 % Sodium Chloride 1,000 ML IVC SCH (06:21)
[2017-09-29 06:26] LABS: Basophils % 0.6 %; Eosinophils # 0.1 K/mcL (0.0-0.6); Eosinophils % 3.5 %; Hematocrit 28.3 % (35.3-44.9); Lymphocytes # 1.1 K/mcL (0.6-4.6); Lymphocytes % 35.7 %; Mean Corpuscular HGB Conc 31.8 g/dL (31.6-35.5); Mean Corpuscular Hemoglobin 31.6 pg (28.0-33.3); Mean Corpuscular Volume 99.3 fL (83.0-100.0); Mean Platelet Volume 12.3 fL (9.4-12.4); Monocytes # 0.5 K/mcL (0.0-1.3); Monocytes % 14.6 %; Neutrophils # 1.4 K/mcL (1.6-8.9); Platelet Count 170 K/mcL (140-400); Red Blood Count 2.85 M/mcL (3.82-4.97); Red Cell Distribution Width 14.6 % (11.5-14.5); Segmented Neutrophils % 44.6 %
[2017-09-29 06:28] LABS: Alanine Aminotransferase 13 Units/L (0-55); Albumin 2.1 g/dL (3.5-5.0); Albumin/Globulin Ratio 0.6 (1.1-2.2); Alkaline Phosphatase 64 Units/L (38-126); Aspartate Amino Transferase 13 Units/L (5-34); BUN/Creatinine Ratio 12 (6-26); Bilirubin,Total 0.4 mg/dL (0.2-1.2); Blood Urea Nitrogen 8 mg/dL (7-20); Calcium 7.8 mg/dL (8.6-10.8); Carbon Dioxide 23 mEq/L (19-29); Chloride 112 mEq/L (98-109); Globulin 3.7 g/dL (2.4-3.5); Glucose 104 mg/dL (70-99); Magnesium 1.2 mg/dL (1.6-2.6); Osmolality,Calculated 291 (280-300); Phosphorous 2.5 mg/dL (2.3-4.7); Potassium 3.4 mEq/L (3.5-4.5); Sodium 141 mEq/L (136-145); Total Protein 5.8 g/dL (6.0-8.3); eGFR For African Americans > 60 (> 60); eGFR For Non-African Americans > 60 (> 60)
[2017-09-29] MEDS: Lactobacillus 1 EACH CAP.SPRINK PO SCH ×2 (09:47→22:23)
[2017-09-29] MEDS: *HR* Rivaroxaban 15 MG TABLET PO SCH ×2 (09:47→22:23)
[2017-09-29] MEDS: Vancomycin Oral Soln 250 MG/5 ML UDC PO SCH ×4 (09:49→22:24)
--- NOTE | 2017-09-29 13:12 | Infectious Disease Progress No ---
Date of Encounter: 09/29/17 Time of Encounter: 13:09 - Assessment and Plan (1) Gram-positive bacteremia Current Visit: Yes Status: Resolved Blood cultures drawn 09/23/17 were positive 1/2 sets for CONS. Repeat blood cultures drawn 09/26/17 x 4 sets are NGTD. Likely a contaminant. Treated with three days of IV Vancomycin. No additional treatment required. (2) C. difficile diarrhea Current Visit: Yes Status: Acute Likely secondary to recent antibiotic use. C. diff PCR positive. Mild, uncomplicated. Continue Vancomycin 125mg PO QID. Given that the patient also has a UTI and will require antibiotics, she will likely benefit from a prolonged course of PO antibiotic. Continue C. diff contact precautions. Duration of treatment depends on the clinical picture. I would recommend extending course of PO vanc for 7 days beyond when the patient completes antibiotic therapy for her UTI. Continue supportive care. (3) UTI (urinary tract infection) Current Visit: Yes Status: Acute Causative organism Citrobacter freundii. Uncomplicated. Continue Cefepime 2 grams IV Q12H. Duration of treatment depends on the clinical picture, but will likely transition to PO Fosfomycin 3 grams PO Q3 days x 2 doses when ready for discharge to complete the course of treatment. Monitor renal function and dose-adjust antibiotics. Qualifiers: Urinary tract infection type: site unspecified Hematuria presence: without hematuria Qualified Code(s): N39.0 - Urinary tract infection, site not specified (4) Pulmonary embolism Current Visit: Yes Status: Acute CT of the chest showed a non-occlusive RUL anterior segmental pulmonary emboli. Etiology unclear. Management per the primary team. Qualifiers: Pulmonary embolism type: other Chronicity: acute Acute cor pulmonale presence: without acute cor pulmonale Qualified Code(s): I26.99 - Other pulmonary embolism without acute cor pulmonale (5) Acute encephalopathy Current Visit: Yes Status: Acute Likely secondary to hypoxia and pulmonary emboli. CT head negative. Appears improved. Continue to monitor closely. (6) Abdominal pain Current Visit: Yes Status: Resolved Likely secondary to C. diff. CT of the abdomen and pelvis was negative for acute intra-abdominal abnormality. Continue supportive care. Resolved. Qualifiers: Abdominal location: generalized Qualified Code(s): R10.84 - Generalized abdominal pain (7) Hypokalemia Current Visit: Yes Status: Acute (8) Anemia Current Visit: Yes Status: Acute Hgb stable. No acute bleeding on exam. Workup and management per the primary team. Qualifiers: Anemia type: due to chronic kidney disease Chronic kidney disease stage: stage 3 (moderate) Qualified Code(s): N18.3 - Chronic kidney disease, stage 3 (moderate); D63.1 - Anemia in chronic kidney disease; D63.1 - Anemia in chronic kidney disease (9) Dehydration Current Visit: Yes Status: Resolved Secondary to GI loss. Improved. Management per the primary team. (10) Generalized weakness Current Visit: Yes Status: Resolved Secondary to dehydration. Improved. (11) CKD (chronic kidney disease) stage 3, GFR 30-59 ml/min Current Visit: No Status: Chronic - Subjective Interval history: Patient seen and examined. No acute events noted overnight. Patient sitting up in the bedside chair. Denies any fevers or chills or rigors. Denies any chest pain, shortness of breath, or cough. Denies any nausea or vomiting. She states her appetite is okay. States the diarrhea is improving. Denies dysuria. Reports upper back pain, but denies flank pain. Denies pain in her extremities. Denies oral thrush or new skin lesions. Infect Dis PN-Objective Data - Labs CBC & Chem 7: 09/29/17 05:58 09/29/17 05:58 Labs: Laboratory Results - last 24 hr 09/29/17 09/29/17 05:58 05:58 WBC 3.1 L RBC 2.85 L Hgb 9.0 L Hct 28.3 L MCV 99.3 MCH 31.6 MCHC 31.8 RDW 14.6 H Plt Count 170 MPV 12.3 Immature Gran % 1.0 Seg Neutrophils % 44.6 Lymphocytes % 35.7 Monocytes % 14.6 Eosinophils % 3.5 Basophils % 0.6 Neutrophils # 1.4 L Lymphocytes # 1.1 Monocytes # 0.5 Eosinophils # 0.1 Basophils # 0.0 Sodium 141 Potassium 3.4 L Chloride 112 H Carbon Dioxide 23 BUN 8 Creatinine 0.66 Est GFR ( Amer) > 60 Est GFR (Non-Af Amer) > 60 BUN/Creatinine Ratio 12 Glucose 104 H Calculated Osmolality 291 Calcium 7.8 L Phosphorus 2.5 Magnesium 1.2 L Total Bilirubin 0.4 AST 13 ALT 13 Alkaline Phosphatase 64 Serum Total Protein 5.8 L Albumin 2.1 L Globulin 3.7 H Albumin/Globulin Ratio 0.6 L Cultures: Cultures 09/26/17 16:03 Blood Culture - Preliminary Peripheral Venipuncture No growth. 09/26/17 16:03 Blood Culture - Preliminary Peripheral Venipuncture No growth. 09/26/17 01:08 Blood Culture - Preliminary Peripheral Venipuncture No growth. 09/26/17 01:08 Blood Culture - Preliminary Peripheral Venipuncture No growth. Serology 09/24/17 Range/Units 11:16 Stl C. diff Tox B Gene Positive (Negative) Exam - Constitutional Vitals: Temp Pulse Resp BP Pulse Ox 98.4 F 70 14 159/81 94 09/29/17 10:21 09/29/17 10:21 09/29/17 10:21 09/29/17 10:21 09/29/17 10:21 General appearance: average body habitus, cooperative, no acute distress - Head Head exam: Present: atraumatic, normal inspection, normocephalic - Eye Eye exam: Present: EOMI, normal appearance, PERRL Pupils: Present: normal accommodation - ENT ENT exam: Present: mucous membranes moist - Neck Neck exam: Present: normal inspection - Respiratory Respiratory exam: Present: CTAB. Absent: rales, respiratory distress, rhonchi, wheezes - Cardiovascular Cardiovascular exam: Present: RRR, +S1, +S2 - GI/Abdominal GI/Abdominal exam: Present: normal bowel sounds, soft. Absent: distended, tenderness - Extremities Exam Extremities exam: Present: normal inspection. Absent: joint swelling, pedal edema, tenderness - Back Exam Back exam: Present: normal inspection. Absent: CVA tenderness (L), CVA tenderness (R) - Neurological Exam Neurological exam: Present: alert, oriented X3, no focal deficits - Psychiatric Psychiatric exam: Present: normal affect, normal mood - Skin Skin exam: Present: dry, intact, normal color, warm Consult Discharge Plan - Plan Referrals: Alan Feldman MD [Family Provider] - Taylor Harding CNP [Primary Care Provider] -
--- NOTE | 2017-09-29 17:20 | Internal Med Progress Note ---
Date of Encounter: 09/29/17 Time of Encounter: 10:00 - Assessment and plan (1) HTN (hypertension) Current Visit: Yes Status: Chronic Assessment and plan: not well controlled will increase lisinopril dose to 20 mg daily Qualifiers: Hypertension type: essential hypertension Qualified Code(s): I10 - Essential (primary) hypertension (2) DVT prophylaxis Current Visit: Yes Status: Acute Assessment and plan: on Xarelto (3) Sigmoid diverticulitis Current Visit: Yes Status: Acute Assessment and plan: recent diagnosis ct shows no acute diverticulitis (4) Abdominal pain Current Visit: Yes Status: Resolved Assessment and plan: continue to monitor. Possibly due to UTI or diverticulitis. Qualifiers: Abdominal location: generalized Qualified Code(s): R10.84 - Generalized abdominal pain (5) UTI (urinary tract infection) Current Visit: Yes Status: Acute Assessment and plan: Urine culture positive for Citrobacter Plan: cefepime 2 g BID Per ID: Patient needs at least 2 weeks of antibiotics. Qualifiers: Urinary tract infection type: site unspecified Hematuria presence: without hematuria Qualified Code(s): N39.0 - Urinary tract infection, site not specified (6) C. difficile diarrhea Current Visit: Yes Status: Acute Assessment and plan: Noted that patient has a C. difficile PCR positive. likely secondary to recent use of ABX Appreciate ID recs Plan: Improved diarrhea. continue oral vanc probiotics (7) Pulmonary embolism Current Visit: Yes Status: Acute Assessment and plan: Chest CTA obtained due to AMS CTA showed acute nonocclusive right upper lobe anterior segmental pulmonary emboli, cardiomegaly, right heart strain secdonary to PE, nonspecific bilateral patchy lower lobe opacities which may represent atalectasis or possible superimposed pneumonia. Plan: continue Xarelto 15 mg BID. Qualifiers: Pulmonary embolism type: other Chronicity: acute Acute cor pulmonale presence: without acute cor pulmonale Qualified Code(s): I26.99 - Other pulmonary embolism without acute cor pulmonale - Time Spent With Patient 25 - 35 minutes - Subjective Interval history: Patient was seen and examined. Still complaining of mild abdominal pain. Had 3 bowel movements since last 24-hour period. Stool is well formed. We will continue by mouth vancomycin for C. difficile. Continue cefepime IV for UTI. ID consult is on case. - Constitutional Vitals: Temp Pulse Resp BP Pulse Ox 99.0 F 72 14 154/77 98 09/29/17 14:52 09/29/17 14:52 09/29/17 14:52 09/29/17 14:52 09/29/17 14:52 General appearance: Present: A&O X 3, pleasant, no acute distress, answers questions appropriately - Head Head exam: Present: atraumatic, normocephalic - Eye Eye exam: Present: PERRL, conjuntiva pink, sclera anicteric Pupils: Present: PERRL - Neck Neck exam general surgery: Present: supple, trachea midline. Absent: lymphadenopathy - Respiratory Respiratory exam: Present: CTAB. Absent: accessory muscle use, rales, rhonchi, wheezes - Cardiovascular Cardiovascular exam: Present: RRR, +S1, +S2. Absent: diastolic murmur, gallop, rubs, systolic murmur - GI/Abdominal GI/Abdominal exam: Present: normal bowel sounds, soft, tenderness (Mild abdominal tenderness without rebound or guarding), no peritoneal signs. Absent : distended - Extremities Exam Extremities exam: Present: warm, radial pulses palpable and symmetrical. Absent : calf tenderness, cyanotic, pedal edema - Neurological Exam Neurological exam: Present: CN II-XII intact, oriented X3, no focal deficits. Absent: pronater drift, facial droop, speech deficit - Skin Skin exam: Present: dry, intact Internal Medicine: Result - Labs CBC & Chem 7: 09/29/17 05:58 09/29/17 05:58 Labs: Short CBC 09/29/17 Range/Units 05:58 WBC 3.1 L (4.3-11.1) K/mcL Hgb 9.0 L (11.5-15.4) g/dL Hct 28.3 L (35.3-44.9) % Plt Count 170 (140-400) K/mcL Neutrophils # 1.4 L (1.6-8.9) K/mcL BMP 09/29/17 05:58 Sodium 141 Potassium 3.4 L Chloride 112 H Carbon Dioxide 23 BUN 8 Creatinine 0.66 Glucose 104 H Calcium 7.8 L Liver Function 09/29/17 Range/Units 05:58 Total Bilirubin 0.4 (0.2-1.2) mg/dL AST 13 (5-34) Units/L ALT 13 (0-55) Units/L Alkaline Phosphatase 64 (38-126) Units/L Albumin 2.1 L (3.5-5.0) g/dL Consult Discharge Plan - Plan Referrals: Alan Feldman MD [Family Provider] - Taylor Harding CNP [Primary Care Provider] -
[2017-09-29 20:16] LABS: Basophils % 0.4 %; Eosinophils # 0.2 K/mcL (0.0-0.6); Eosinophils % 3.1 %; Hematocrit 31.8 % (35.3-44.9); Hemoglobin 10.2 g/dL (11.5-15.4); Lymphocytes # 1.8 K/mcL (0.6-4.6); Lymphocytes % 34.5 %; Mean Corpuscular HGB Conc 32.1 g/dL (31.6-35.5); Mean Corpuscular Hemoglobin 32.5 pg (28.0-33.3); Mean Corpuscular Volume 101.3 fL (83.0-100.0); Monocytes # 0.7 K/mcL (0.0-1.3); Platelet Count 237 K/mcL (140-400); Red Blood Count 3.14 M/mcL (3.82-4.97); Red Cell Distribution Width 14.7 % (11.5-14.5)
[2017-09-29 20:20] LABS: Neutrophils # 2.4 K/mcL (1.6-8.9)
[2017-09-29 20:25] LABS: BUN/Creatinine Ratio 12 (6-26); Blood Urea Nitrogen 9 mg/dL (7-20); Calcium 8.3 mg/dL (8.6-10.8); Carbon Dioxide 18 mEq/L (19-29); Chloride 112 mEq/L (98-109); Glucose 128 mg/dL (70-99); Osmolality,Calculated 292 (280-300); Potassium 3.8 mEq/L (3.5-4.5); Sodium 141 mEq/L (136-145); eGFR For African Americans > 60 (> 60); eGFR For Non-African Americans > 60 (> 60)
[2017-09-30] MEDS: 0.9 % Sodium Chloride 1,000 ML IVC SCH (00:07)
[2017-09-30] MEDS: Cefepime HCl 2,000 MG in Water for inj. (sterile) 20 ML IVP SCH ×2 (04:21→17:35)
[2017-09-30] MEDS: Lactobacillus 1 EACH CAP.SPRINK PO SCH ×2 (10:13→21:58)
[2017-09-30] MEDS: *HR* Rivaroxaban 15 MG TABLET PO SCH ×2 (10:14→21:57)
[2017-09-30] MEDS: Vancomycin Oral Soln 250 MG/5 ML UDC PO SCH ×4 (10:14→21:56)
[2017-09-30] MEDS: Famotidine 20 MG TABLET PO SCH (10:14)
--- NOTE | 2017-09-30 16:37 | Internal Med Progress Note ---
Date of Encounter: 09/30/17 Time of Encounter: 10:00 - Assessment and plan (1) HTN (hypertension) Current Visit: Yes Status: Chronic Assessment and plan: not well controlled will increase lisinopril dose to 20 mg daily Qualifiers: Hypertension type: essential hypertension Qualified Code(s): I10 - Essential (primary) hypertension (2) DVT prophylaxis Current Visit: Yes Status: Acute Assessment and plan: on Xarelto (3) Sigmoid diverticulitis Current Visit: Yes Status: Acute Assessment and plan: recent diagnosis ct shows no acute diverticulitis (4) Abdominal pain Current Visit: Yes Status: Resolved Assessment and plan: continue to monitor. Possibly due to UTI or diverticulitis. Qualifiers: Abdominal location: left lower quadrant Qualified Code(s): R10.32 - Left lower quadrant pain (5) UTI (urinary tract infection) Current Visit: Yes Status: Acute Assessment and plan: Urine culture positive for Citrobacter Plan: cefepime 2 g BID Per ID: Patient needs at least 2 weeks of antibiotics. Will d/c on Fosfomycin Qualifiers: Urinary tract infection type: site unspecified Hematuria presence: without hematuria Qualified Code(s): N39.0 - Urinary tract infection, site not specified (6) C. difficile diarrhea Current Visit: Yes Status: Acute Assessment and plan: Noted that patient has a C. difficile PCR positive. likely secondary to recent use of ABX Appreciate ID recs Plan: Improved diarrhea. continue oral vanc probiotics (7) Pulmonary embolism Current Visit: Yes Status: Acute Assessment and plan: Chest CTA obtained due to AMS CTA showed acute nonocclusive right upper lobe anterior segmental pulmonary emboli, cardiomegaly, right heart strain secdonary to PE, nonspecific bilateral patchy lower lobe opacities which may represent atalectasis or possible superimposed pneumonia. Plan: continue Xarelto 15 mg BID. Qualifiers: Pulmonary embolism type: other Chronicity: acute Acute cor pulmonale presence: without acute cor pulmonale Qualified Code(s): I26.99 - Other pulmonary embolism without acute cor pulmonale - Time Spent With Patient 25 - 35 minutes - Subjective Interval history: Patient was seen and examined. Still complaining of mild abdominal pain. Had 4 bowel movements since last 24-hour period. Stool is loose but well formed. We will continue by mouth vancomycin for C. difficile. Continue cefepime IV for UTI. Will switch to po Fosfomycin for UTI upon discharge, per ID recommendation. - Constitutional Vitals: Temp Pulse Resp BP Pulse Ox 98.6 F 73 14 159/66 97 09/30/17 12:35 09/30/17 12:35 09/30/17 12:35 09/30/17 12:35 09/30/17 12:35 General appearance: Present: A&O X 3, pleasant, no acute distress, answers questions appropriately - Head Head exam: Present: atraumatic, normocephalic - Eye Eye exam: Present: PERRL, conjuntiva pink, sclera anicteric Pupils: Present: PERRL - Neck Neck exam general surgery: Present: supple, trachea midline. Absent: lymphadenopathy - Respiratory Respiratory exam: Present: CTAB. Absent: accessory muscle use, rales, rhonchi, wheezes - Cardiovascular Cardiovascular exam: Present: RRR, +S1, +S2. Absent: diastolic murmur, gallop, rubs, systolic murmur - GI/Abdominal GI/Abdominal exam: Present: normal bowel sounds, soft, tenderness (Mild LLQ tenderness without rebound or guarding), no peritoneal signs. Absent: distended - Extremities Exam Extremities exam: Present: warm, radial pulses palpable and symmetrical. Absent : calf tenderness, cyanotic, pedal edema - Neurological Exam Neurological exam: Present: CN II-XII intact, oriented X3, no focal deficits. Absent: pronater drift, facial droop, speech deficit - Skin Skin exam: Present: dry, intact Internal Medicine: Result - Labs CBC & Chem 7: 09/29/17 19:58 09/29/17 19:58 Labs: Short CBC 09/29/17 Range/Units 19:58 WBC 5.2 D (4.3-11.1) K/mcL Hgb 10.2 L (11.5-15.4) g/dL Hct 31.8 L (35.3-44.9) % Plt Count 237 (140-400) K/mcL Neutrophils # 2.4 (1.6-8.9) K/mcL BMP 09/29/17 19:58 Sodium 141 Potassium 3.8 Chloride 112 H Carbon Dioxide 18 L BUN 9 Creatinine 0.76 Glucose 128 H Calcium 8.3 L Consult Discharge Plan - Plan Referrals: Alan Feldman MD [Family Provider] - Taylor Harding CNP [Primary Care Provider] -
[2017-09-30] MEDS: *HR* LORazepam 0.5 MG TABLET PO PRN (21:58)
[2017-10-01] MEDS: Cefepime HCl 2,000 MG in Water for inj. (sterile) 20 ML IVP SCH ×2 (04:05→16:30)
[2017-10-01 06:30] LABS: Eosinophils # 0.1 K/mcL (0.0-0.6); Eosinophils % 3.4 %; Hematocrit 28.3 % (35.3-44.9); Hemoglobin 8.7 g/dL (11.5-15.4); Immature Granulocytes % 0.7 % (0-4); Lymphocytes # 1.5 K/mcL (0.6-4.6); Mean Corpuscular HGB Conc 30.7 g/dL (31.6-35.5); Mean Corpuscular Hemoglobin 31.4 pg (28.0-33.3); Mean Corpuscular Volume 102.2 fL (83.0-100.0); Mean Platelet Volume 12.1 fL (9.4-12.4); Monocytes # 0.6 K/mcL (0.0-1.3); Monocytes % 14.5 %; Neutrophils # 1.8 K/mcL (1.6-8.9); Platelet Count 186 K/mcL (140-400); Red Blood Count 2.77 M/mcL (3.82-4.97); Red Cell Distribution Width 14.6 % (11.5-14.5); Segmented Neutrophils % 44.4 %
[2017-10-01 06:37] LABS: BUN/Creatinine Ratio 13 (6-26); Blood Urea Nitrogen 9 mg/dL (7-20); Calcium 8.2 mg/dL (8.6-10.8); Carbon Dioxide 21 mEq/L (19-29); Chloride 112 mEq/L (98-109); Glucose 95 mg/dL (70-99); Osmolality,Calculated 292 (280-300); Potassium 3.6 mEq/L (3.5-4.5); Sodium 142 mEq/L (136-145); eGFR For African Americans > 60 (> 60); eGFR For Non-African Americans > 60 (> 60)
[2017-10-01] MEDS: Lactobacillus 1 EACH CAP.SPRINK PO SCH ×2 (08:59→23:33)
[2017-10-01] MEDS: *HR* Rivaroxaban 15 MG TABLET PO SCH ×2 (08:59→23:33)
[2017-10-01] MEDS: Vancomycin Oral Soln 250 MG/5 ML UDC PO SCH ×4 (09:00→23:34)
[2017-10-01] MEDS: Famotidine 20 MG TABLET PO SCH (09:00)
--- NOTE | 2017-10-01 16:49 | Internal Med Progress Note ---
Date of Encounter: 10/01/17 Time of Encounter: 10:00 - Assessment and plan (1) HTN (hypertension) Current Visit: Yes Status: Chronic Assessment and plan: not well controlled Increased lisinopril dose to 20 mg daily, BP is better controlled now. Qualifiers: Hypertension type: essential hypertension Qualified Code(s): I10 - Essential (primary) hypertension (2) DVT prophylaxis Current Visit: Yes Status: Acute Assessment and plan: on Xarelto (3) Sigmoid diverticulitis Current Visit: Yes Status: Acute Assessment and plan: Pt has hx of recurrent diverticulitis, has hx of sigmoid colectomy, was just treated with cipro and flagyl recently. Has concurrent C Diff colitis now. CT abd on 09/27 shows acute and/or chronic diverticulitis with the possibility of associated fistulous or sinus tract. At that time, hospitalist Dr Topete discussed with radiologist, and found it is not new. Will cont C Diff treatment now, pt may need close outpatient follow up and may need further intervention after this acute C Diff colitis is cured. (4) Abdominal pain Current Visit: Yes Status: Resolved Assessment and plan: continue to monitor. Possibly due to UTI or diverticulitis. Resolved today. Qualifiers: Abdominal location: left lower quadrant Qualified Code(s): R10.32 - Left lower quadrant pain (5) UTI (urinary tract infection) Current Visit: Yes Status: Acute Assessment and plan: Urine culture positive for Citrobacter Plan: cefepime 2 g BID Per ID: Patient needs at least 2 weeks of antibiotics. Will d/c on po abx Qualifiers: Urinary tract infection type: site unspecified Hematuria presence: without hematuria Qualified Code(s): N39.0 - Urinary tract infection, site not specified (6) C. difficile diarrhea Current Visit: Yes Status: Acute Assessment and plan: Noted that patient has a C. difficile PCR positive. likely secondary to recent use of ABX Appreciate ID recs Plan: Improved diarrhea. continue oral vanc probiotics (7) Pulmonary embolism Current Visit: Yes Status: Acute Assessment and plan: Chest CTA obtained due to AMS CTA showed acute nonocclusive right upper lobe anterior segmental pulmonary emboli, cardiomegaly, right heart strain secdonary to PE, nonspecific bilateral patchy lower lobe opacities which may represent atalectasis or possible superimposed pneumonia. Plan: continue Xarelto 15 mg BID. Qualifiers: Pulmonary embolism type: other Chronicity: acute Acute cor pulmonale presence: without acute cor pulmonale Qualified Code(s): I26.99 - Other pulmonary embolism without acute cor pulmonale - Time Spent With Patient 25 - 35 minutes - Subjective Interval history: Patient was seen and examined. No abdominal pain. Had 2 bowel movements since last 24-hour period. Still has loose stool. We will continue by mouth vancomycin for C. difficile. Continue cefepime IV for UTI. Will switch to po abx UTI upon discharge, ID recommended Fosfomycin, however it is not available in pt's and our pharmacy after robert check, will consider levequin per sensitivity. Will D/C pt home as stool is normal. - Constitutional Vitals: Temp Pulse Resp BP Pulse Ox 98.2 F 78 16 146/73 98 10/01/17 15:13 10/01/17 15:13 10/01/17 15:13 10/01/17 15:13 10/01/17 15:13 General appearance: Present: A&O X 3, pleasant, no acute distress, answers questions appropriately - Head Head exam: Present: atraumatic, normocephalic - Eye Eye exam: Present: PERRL, conjuntiva pink, sclera anicteric Pupils: Present: PERRL - Neck Neck exam general surgery: Present: supple, trachea midline. Absent: lymphadenopathy - Respiratory Respiratory exam: Present: CTAB. Absent: accessory muscle use, rales, rhonchi, wheezes - Cardiovascular Cardiovascular exam: Present: RRR, +S1, +S2. Absent: diastolic murmur, gallop, rubs, systolic murmur - GI/Abdominal GI/Abdominal exam: Present: normal bowel sounds, soft, no peritoneal signs. Absent: distended, tenderness - Extremities Exam Extremities exam: Present: warm, radial pulses palpable and symmetrical. Absent : calf tenderness, cyanotic, pedal edema - Neurological Exam Neurological exam: Present: CN II-XII intact, oriented X3, no focal deficits. Absent: pronater drift, facial droop, speech deficit - Skin Skin exam: Present: dry, intact Internal Medicine: Result - Labs CBC & Chem 7: 10/01/17 06:03 10/01/17 06:03 Labs: Short CBC 10/01/17 Range/Units 06:03 WBC 4.1 L (4.3-11.1) K/mcL Hgb 8.7 L D (11.5-15.4) g/dL Hct 28.3 L (35.3-44.9) % Plt Count 186 (140-400) K/mcL Neutrophils # 1.8 (1.6-8.9) K/mcL BMP 10/01/17 06:03 Sodium 142 Potassium 3.6 Chloride 112 H Carbon Dioxide 21 BUN 9 Creatinine 0.67 Glucose 95 Calcium 8.2 L Consult Discharge Plan - Plan Referrals: Alan Feldman MD [Family Provider] - Taylor Harding CNP [Primary Care Provider] - Prescriptions: Fosfomycin Tromethamine [Monurol] 3 gm PO Q3D #2 tab
[2017-10-02] MEDS: Cefepime HCl 2,000 MG in Water for inj. (sterile) 20 ML IVP SCH (04:29)
[2017-10-02] MEDS: Famotidine 20 MG TABLET PO SCH (09:08)
[2017-10-02] MEDS: *HR* Rivaroxaban 15 MG TABLET PO SCH (09:08)
[2017-10-02] MEDS: Lactobacillus 1 EACH CAP.SPRINK PO SCH (09:09)
[2017-10-02] MEDS: Vancomycin Oral Soln 250 MG/5 ML UDC PO SCH (09:14)
--- NOTE | 2017-10-02 10:00 | Discharge Summary ---
Date of Encounter: 10/02/17 Time of Encounter: 09:00 - Discharge Diagnosis (1) HTN (hypertension) Priority: Secondary Status: Chronic Qualifiers: Hypertension type: essential hypertension Qualified Code(s): I10 - Essential (primary) hypertension (2) DVT prophylaxis Priority: Secondary Status: Acute (3) Sigmoid diverticulitis Priority: Secondary Status: Acute (4) Abdominal pain Priority: Primary Status: Resolved Qualifiers: Abdominal location: left lower quadrant Qualified Code(s): R10.32 - Left lower quadrant pain (5) UTI (urinary tract infection) Priority: Primary Status: Acute Qualifiers: Urinary tract infection type: site unspecified Hematuria presence: without hematuria Qualified Code(s): N39.0 - Urinary tract infection, site not specified (6) C. difficile diarrhea Priority: Primary Status: Acute (7) Pulmonary embolism Priority: Primary Status: Acute Qualifiers: Pulmonary embolism type: other Chronicity: acute Acute cor pulmonale presence: without acute cor pulmonale Qualified Code(s): I26.99 - Other pulmonary embolism without acute cor pulmonale - Discharge Medications Prescriptions: Famotidine [Pepcid] 20 mg PO DAILY #30 tablet Lactobacillus [Culturelle] 1 each PO BID #30 cap.sprink Rivaroxaban [Xarelto] 15 mg PO BID 16 Days #32 tablet Vancomycin Oral Soln [Vancocin] 125 mg PO QID 13 Days #52 [facility] [place] Medications: Ferrous Sulfate [Iron] 325 mg PO DAILY 09/23/17 [History] Hydrochlorothiazide [Microzide] 12.5 mg PO DAILY 09/23/17 [History] LORazepam [Ativan] 0.5 mg PO DAILY PRN 09/23/17 [History] Metoprolol [Lopressor] 50 mg PO BID 09/23/17 [History] Quinapril HCl [Accupril] 20 mg PO DAILY 09/23/17 [History] Tramadol HCl [Ultram] 50 mg PO Q6H PRN 09/23/17 [History] Famotidine [Pepcid] 20 mg PO DAILY #30 tablet 10/02/17 [Rx] Lactobacillus [Culturelle] 1 each PO BID #30 cap.sprink 10/02/17 [Rx] Rivaroxaban [Xarelto] 15 mg PO BID 16 Days #32 tablet 10/02/17 [Rx] Vancomycin Oral Soln [Vancocin] 125 mg PO QID 13 Days #52 [facility]c 10/02/17 [Rx] levoFLOXacin [Levaquin] 500 mg PO DAILY #6 tablet 10/02/17 [Rx] Allergies/Adverse Reactions: 3 Allergy/AdvReac Type Severity Reaction Status Date / Time sulfamethoxazole Allergy Hives Verified 09/23/17 16:04 [From Bactrim] trimethoprim [From Bactrim] Allergy Hives Verified 09/23/17 16:04 - Notes to Outpatient Provider 1. Patient has UTI, urine culture shows Citrobacter, sensitive to Levaquin. Please continue Levaquin 500 mg by mouth daily for 6 more days to finish a 14 days course. 2. Patient has C. difficile colitis, on by mouth vancomycin, please continue by mouth vancomycin and probiotics until 1 week after the last dose of Levaquin (Per ID recommendation). 3. Patient was found acute PE, Xarelto 15mg BID started from 09/27, please continue this dose for 21 days (last day will be 10/18/17), then switched to 20 mg daily. (15mg BID prescription will give pt by me covering until 10/18, please prescribe the 20mg daily dose for pt as she finishes the 15mg bid course) . Date of admission: 09/23/17 16:58 Primary care physician: Taylor Harding CNP Consults: 09/24/17 15:00 Consult to Infectious Diseases [CONS] Routine Consulting Provider: Infectious Disease [place] Reason for Consult: +uti, +c.diff antibiotic recommendations Call Completed: Yes 09/24/17 15:01 Consult to Occupational Therapy [CONS] Routine Comment: Evaluate, develop and implement POC Reason for Consult: eval and treat Consult to Physical Therapy [CONS] Routine Comment: Evaluate, develop and implement POC Reason for Consult: eval and treat 09/24/17 17:13 Consult to Loss Prevention Supervisor [CONS] Routine Reason for SW Consult: Discharge planning. Discharging clinician: Meghan Swain Anticipated date of discharge: 10/02/17 - Patient Status Disposition: Home Health Service Condition: Fair Functional capacity at discharge: uses cane/walker Overall status at discharge: patient is progressing back to baseline - Discharge Instructions Follow Up With: Taylor Harding CNP [Primary Care Provider] - 10/14/17 - Diet and Activity Activity: as per physical therapy Diet: low fat, low cholesterol, low salt diet Hospital course: Ms. Mancia is a 76 year old female admitted for abdominal pain and diarrhea. Patient has history of diverticulitis and was recently treated with antibiotics. Patient was found C. difficile positive and was started with the by mouth vancomycin. Patient was also found UTI, urine culture shows Citrobacter. ID consult was called, recommended cefepime IV when patient in hospital, and Fosfomycin po upon discharge. However, after robert check, patient 's pharmacy and our pharmacy has no Fosfomycin available, ID consult is also not available today, will switch to by mouth Levaquin per sensitivity. Will treat patient for total of 14 days per ID recommendation. For patient's C. difficile colitis, will treated one more week after finishing the Levaquin course. During hospitalization, patient was also found acute PE, Xarelto 15mg by mouth twice a day started from 09/27/17, will finish 21 days twice a day course and is switched to 20 mg daily. After treatment, patient's abdominal pain has resolved. Diarrhea stopped. Still has loose stool but well formed. Will discharge patient home today with home health per PT evaluation. Patient needs to follow-up with PCP as outpatient. I saw and examined the patient today. She is awake alert, denies abdominal pain. Had two bowel movements over last 24 hours, stool is well formed. Vitals are stable. Will discharge patient home with home health today. - Time Spent with Patient Total time spent providing and/or coordinating discharge services: 45 minutes Greater than 30 minutes - Constitutional Vitals: Temp Pulse Resp BP Pulse Ox 97.7 F 80 14 168/77 98 10/02/17 07:07 10/02/17 07:07 10/02/17 07:07 10/02/17 07:07 10/02/17 07:07 General appearance: Present: A&O X 3, pleasant, no acute distress, answers questions appropriately - Head Head exam: Present: atraumatic, normocephalic - Eye Eye exam: Present: PERRL, conjuntiva pink, sclera anicteric Pupils: Present: PERRL - Neck Neck exam general surgery: Present: supple, trachea midline. Absent: lymphadenopathy - Respiratory Respiratory exam: Present: CTAB. Absent: accessory muscle use, rales, rhonchi, wheezes - Cardiovascular Cardiovascular exam: Present: RRR, +S1, +S2. Absent: diastolic murmur, gallop, rubs, systolic murmur - GI/Abdominal GI/Abdominal exam: Present: normal bowel sounds, soft, no peritoneal signs. Absent: distended, tenderness - Extremities Exam Extremities exam: Present: warm, radial pulses palpable and symmetrical. Absent : calf tenderness, cyanotic, pedal edema - Neurological Exam Neurological exam: Present: CN II-XII intact, oriented X3, no focal deficits. Absent: pronater drift, facial droop, speech deficit - Skin Skin exam: Present: dry, intact
--- NOTE | 2017-10-02 10:36 | Physician Discharge Referral ---
Home Health/Hosp Referral Info Transfer to: Home Health Provider in Charge Post Discharge: PCP - Diagnosis (1) HTN (hypertension) Status: Chronic (2) DVT prophylaxis Status: Acute (3) Sigmoid diverticulitis Status: Acute (4) Abdominal pain Status: Resolved (5) UTI (urinary tract infection) Status: Acute (6) C. difficile diarrhea Status: Acute (7) Pulmonary embolism Status: Acute - Respiratory Orders Smoking Cessation: Smoking cessation has been advised. For more information, call the [place] [employer] Virtual Quit Line at 3-041-KZKS-NOW. - Diet/Nutrition Diet/Nutrition Orders: Cardiac - Services Needed Following services are medically necessary services: Nursing, Home Health Aide, Physical Therapy, Occupational Therapy - Transfer Medications Prescriptions: Famotidine [Pepcid] 20 mg PO DAILY #30 tablet Lactobacillus [Culturelle] 1 each PO BID #30 cap.sprink levoFLOXacin [Levaquin] 500 mg PO DAILY #6 tablet Rivaroxaban [Xarelto] 15 mg PO BID 16 Days #32 tablet Vancomycin Oral Soln [Vancocin] 125 mg PO QID 13 Days #52 [facility] [place] Medications: Ferrous Sulfate [Iron] 325 mg PO DAILY 09/23/17 [History] Hydrochlorothiazide [Microzide] 12.5 mg PO DAILY 09/23/17 [History] LORazepam [Ativan] 0.5 mg PO DAILY PRN 09/23/17 [History] Metoprolol [Lopressor] 50 mg PO BID 09/23/17 [History] Quinapril HCl [Accupril] 20 mg PO DAILY 09/23/17 [History] Tramadol HCl [Ultram] 50 mg PO Q6H PRN 09/23/17 [History] Famotidine [Pepcid] 20 mg PO DAILY #30 tablet 10/02/17 [Rx] Lactobacillus [Culturelle] 1 each PO BID #30 cap.sprink 10/02/17 [Rx] Rivaroxaban [Xarelto] 15 mg PO BID 16 Days #32 tablet 10/02/17 [Rx] Vancomycin Oral Soln [Vancocin] 125 mg PO QID 13 Days #52 ud 10/02/17 [Rx] levoFLOXacin [Levaquin] 500 mg PO DAILY #6 tablet 10/02/17 [Rx] Allergies/Adverse Reactions: 3 Allergy/AdvReac Type Severity Reaction Status Date / Time sulfamethoxazole Allergy Hives Verified 09/23/17 16:04 [From Bactrim] trimethoprim [From Bactrim] Allergy Hives Verified 09/23/17 16:04 Certification: Further, I certify that my clinical findings support that this patient is homebound (i.e. absences from home require considerable and taxing effort and are for medical reasons or mormonism services or infrequently or short duration when for other reasons) because: Homebound Reason: Patient requires assistance of a person or device to safely leave home Attestation: My signature below is to certify that this patient is under my care and that I, or nurse practitioner, or a physician's investigative assistant working with me, has a face-to -face encounter with this patient.
[2017-10-02 11:39] VITALS: BP 151/77
== END 2017-10-02 12:35 | disposition home health service (06) | DRG 371 ==
LOC: EMEROO 12:08 → 3NENU 16:58 → 3ANU 09-27 17:03
PROVIDERS: ADMIT Internal Medicine; ATTEND Family Medicine